=== PATIENT | male | born 1965 | race Caucasian/White ===

== ENCOUNTER 2016-09-11 01:53 | Emergency (ER) | payer OTHER ==
[2016-09-11] MEDS ORDERED: ADENOSINE 6 MG/2 ML VIAL IVP STA (02:18)
[2016-09-11] MEDS ORDERED: ADENOSINE 6 MG/2 ML VIAL IVP ONE (02:20)
[2016-09-11] MEDS ORDERED: POTASSIUM CHLORIDE 20 MEQ TABLET PO STA (03:53)
[2016-09-11] MEDS ORDERED: POTASSIUM CHLORIDE 20 MEQ TABLET PO ONE (04:02)
== END 2016-09-11 04:14 | disposition home or self-care (01) ==
DX: I47.1 Supraventricular tachycardia (principal)
CPT/HCPCS: 36415; 71020; 80053; 83690; 83735; 84100; 84443; 85025; 85610; 85730; 93005; 93010; 96374; 99291; A9270; J0153

== ENCOUNTER 2021-10-11 03:07 | Emergency (ER) | payer OTHER ==
[2021-10-11] MEDS ORDERED: PROPARACAINE 0.5% OPHTH DROPS 15 ML LEFTEYE STA (03:17)
[2021-10-11 03:36] VITALS: BP 190/95
[2021-10-11] MEDS ORDERED: oxyCODONE/ACET 5/325 Prepack 4 PO STA (03:38)
[2021-10-11] MEDS ORDERED: ERYTHROMYCIN OPHTH OINT 1 GM TUBE LEFTEYE STA (03:38)
--- NOTE | 2021-10-11 03:43 | ED Physician Documentation ---
PD HPI OPHTHO - Stated complaint Stated Complaint: OBJ IN L EYE - Chief complaint Chief Complaint: Heent - History obtained from History obtained from: Patient - Additional information Additional information: Patient is a 55-year-old male with a history of hypertension presenting for evaluation of left eye irritation. He was woodworking around 5 PM when he felt something fly under his safety glasses into his left eye. He tried to irrigate it with water. He continues to feel a irritation and has difficulty opening his eye.He does not routinely wear glasses or contacts but does have readers for astigmatism.He denies pain elsewhere. Review of Systems Constitutional: denies: Fever Eyes: reports: Photophobia, Irritation Nose: denies: Congestion Cardiac: denies: Chest pain / pressure Respiratory: denies: Dyspnea GI: denies: Abdominal Pain Musculoskeletal: denies: Neck pain Neurologic: denies: Headache, Head injury PD PAST MEDICAL HISTORY - Past Medical History Past Medical History: Yes Cardiovascular: Hypertension - Past Surgical History Past Surgical History: Yes HEENT: Tonsil/Adenoidectomy - Present Medications Home Medications: Ambulatory Orders Medication Instructions Recorded Confirmed Erythromycin Base [Erythromycin 1 appful LEFTEYE 5XD 7 Days #1 gm 10/11/21 Ophthalmic Ointment] Lisinopril [Zestril] 40 mg PO DAILY 10/11/21 10/11/21 Metoprolol Tartrate [Lopressor] 100 mg PO DAILY 10/11/21 10/11/21 Oxycodone HCl/Acetaminophen 1 each PO Q6H PRN #10 tablet 10/11/21 [Percocet 5-325 mg Tablet] amLODIPine [Norvasc] 5 mg PO DAILY 10/11/21 10/11/21 - Allergies Allergies/Adverse Reactions: Allergies Allergy/AdvReac Type Severity Reaction Status Date / Time No Known Drug Allergies Allergy Verified 10/11/21 03:16 - Social History Does the pt smoke?: No Smoking Status: Never smoker Does the pt drink ETOH?: No Does the pt have substance abuse?: No - Immunizations Immunizations are current?: No Immunizations: TDAP >10years/unknown - POLST Patient has POLST: No PD ED PE NORMAL - General General: Alert and oriented X 3, No acute distress, Well developed/nourished - HEENT HEENT: Atraumatic, PERRL, EOMI, Pharynx benign - Neck Neck: Supple, no meningeal sign - Derm Derm: Warm and dry - Neuro Neuro: Normal speech - Psych Psych: Normal mood PD ED PE EXPANDED - HEENT HEENT Visual: 1 - abrasion - Eyes Eyes: PERRL, EOMI, No eyelid FB (everted), Injected conj/sclera (Mild left conjunctival injection), Corneal abrasion (Left eye), Fluorescein uptake (Left eye), Anterior chambers clear. No: Corneal FB Results - Vitals Vitals: Vital Signs - 24 hr 10/11/21 10/11/21 03:12 03:32 Temperature 36.1 C L Heart Rate 59 L Respiratory 16 Rate Blood Pressure 190/95 H O2 Saturation 59 L 95 Oxygen O2 Source Room air PD MEDICAL DECISION MAKING - ED course Complexity details: d/w patient ED course: Patient is a 55-year-old male presenting for evaluation of left eye irritation. Visual acuity is intact. Eye was examined with no foreign body seen including with eyelid eversion. On fluorescein stain patient does have a small corneal abrasion to the 1 o'clock position of the left eye.No signs of globe rupture or increased IOP On exam. Patient started on erythromycin given medications for pain. Counseled on treatment plan as well as need for close follow-up with ophthalmology. Patient is aware of return precautions. In accordance with the [facility] clinical policy from June 2012, this patient has asymptomatic elevated blood pressure without evidence of acute target organ injury. There are also no signs of acute stroke, cardiac ischemia, pulmonary edema, encephalopathy or acute congestive heart failure. Therefore the patient will be referred to their primary care provider for follow-up of their asymptomatic hypertension. Departure - Departure Disposition: 01 Home, Self Care Clinical Impression: Corneal abrasion, left Qualifiers: Encounter type: initial encounter Qualified Code(s): S05.02XA - Injury of conjunctiva and corneal abrasion without foreign body, left eye, initial e ncounter Condition: Stable Instructions: ED Eye Injury Corneal Abrasion Prescriptions: Erythromycin Base [Erythromycin Ophthalmic Ointment] 1 appful LEFTEYE 5XD 7 Days #1 gm Oxycodone HCl/Acetaminophen [Percocet 5-325 mg Tablet] 1 each PO Q6H PRN #10 tablet PRN Reason: pain Comments: Elías - You were evaluated for an injury to your left eye. There is no signs of a foreign body in the eye or under the eyelid. However we did find an abrasion to the cornea. This can be very painful.I have prescribed antibiotic ointment as well as pain medications to help. It should get better in the next few days. Please take the medications as prescribed. The prescriptions were sent to the [facility] pharmacy in [place]. I would also recommend close follow-up with an supply chain technician. If you do not have 1, you can call Dr. Martinez at [facility] for an appointment.If you have any worsening symptoms such as abnormal vision, swelling, redness, abnormal drainage please return to the emergency department. Your blood pressure was noted to be elevated. Please also have close follow-up with your primary care doctor regarding this. I am prescribing a short course of narcotic pain medication for you. These are potentially dangerous and addictive medications that should be used carefully. These medications may constipate you. Take an aqbu-pas-ovziboh stool softener (docusate) twice daily with plenty of water while taking these medications. If you go 24 hours without a bowel movement, take fnxx-amu-mshybmc miralax, per package instructions. Do not drink or drive while taking these medications. If you received narcotic or sedating medications while in the emergency department, do not drive for 24 hours. Store this medication in a safe, secure place and out of reach of children. It is a violation of federal law to give or sell this medication to another person or to use in a manner other than prescribed. The ED will not refill narcotic prescriptions, including prescriptions lost or stolen. To dispose of unwanted medications: 1. [facility] at [address] in [place] has a medication drop box. They accept prescription medications (in pill form) Sunday through Sunday 9:00 a.m. to 5:00 p.m. 2. The [facility] accepts prescription medications (in pill form only) for disposal year round. Call for more information. 3. Contact the [facility] for the next [facility] sponsored prescription drug collection event. , [phone], or [phone]; Note that many narcotic pain relievers also contain Tylenol/acetaminophen. Please ensure that your total dose of acetaminophen from all sources does not exceed 3 g (3000 mg) per day. Discharge Date/Time: 10/11/21 03:49
== END 2021-10-11 03:49 | disposition home or self-care (01) ==
LOC: ED 03:07
DX: S05.02XA Injury of conjunctiva and corneal abrasion without foreign body, left eye, initial encounter (principal); X58.XXXA Exposure to other specified factors, initial encounter; Y93.H3 Activity, building and construction; Y92.89 Other specified places as the place of occurrence of the external cause; I10 Essential (primary) hypertension
CPT/HCPCS: 99282; J3490

== ENCOUNTER 2025-03-27 13:30 | Inpatient (IN) ==
--- OUTSIDE RECORDS SUMMARY | 2025-03-27 14:09 | EXTERNAL MEDICAL SUMMARY RPT | Continuity of Care Document ---
Author Organization [facility] Address [address] [place] [id number] Phone Problems date description facility 2025-01-22 16:21 Dysuria [facility] 2025-01-22 17:06 Dysuria [facility] 2025-01-23 00:06 Dysuria [facility] 2025-02-06 10:31 Dysuria [facility] 2025-03-03 15:27 Retention of urine, unspecified [facility] 2025-03-03 15:32 Hematuria, unspecified [facility] 2025-03-04 11:34 Other retention of urine [facility] 2025-03-04 15:47 Other retention of urine [facility] 2025-03-04 16:04 Other retention of urine [facility] 2025-03-04 16:06 Hematuria, unspecified [facility] 2025-03-05 00:04 Hematuria, unspecified [facility] 2025-03-18 00:05 Elevated prostate specific anti gen [PSA] [facility] 2025-03-18 14:58 Hematuria, unspecified [facility] 2025-03-18 15:00 Hematuria, unspecified [facility] 2025-03-18 15:00 Elevated prostate specific anti gen [PSA] [facility] 2025-03-18 15:12 Hematuria, unspecified [facility] 2025-03-18 15:17 Fever, unspecified [facility] 2025-03-18 15:44 Elevated prostate specific anti gen [PSA] [facility] 2025-03-18 15:56 Acute kidney failure, unspecifi ed [facility] 2025-03-19 00:04 Hematuria, unspecified [facility] 2025-03-19 00:04 Fever, unspecified [facility] 2025-03-23 08:36 [facility], [facility]ifi [facility] 2025-03-23 08:39 Elevated prostate specific anti gen [PSA[facility] 2025-03-23 08:41 Acute kidney failure, unspecifi ed [facility] 2025-03-23 08:44 Elevated prostate specific anti gen [PSA] [facility] 2025-03-23 14:52 Acute kidney failure, unspecifi ed [facility] 2025-03-23 14:55 Elevated prostate specific anti gen [PSA] [facility] 2025-03-23 15:21 Acute kidney failure, unspecifi ed [facility] 2025-03-23 15:21 Elevated prostate specific anti gen [PSA] [email or web address] [facility] 2025-03-23 16:44 [facility] 2025-03-24 00:02 Acute kidney failure, unspecifi ed [facility] 2025-03-24 07:56 [facility]atica, [facility] side [facility] Results/Labs test date facility value unit notes Result panel 1 CUL, URINE 2025-01-22 15:55 [facility] CXPCULTUR E IN PROGRESS. RESULTS TO FOLLOW. (missing) (missing) CUL, URINE 2025-01-22 15:55 [facility] NGNo growth (miss ing) (missing) Result panel 2 UROBILINOGEN,URINE 2025-02-25 07:58 [facility] 0.2 (NORMAL) e.u./dl (missing) SPECIFIC GRAVITY,URINE 2025-02-25 07:58 [facility] 1.020 (missing) (missing) RBC,URINE 2025-02-25 07:58 [facility] 11-25 /hpf (missing) WBC,URINE 2025-02-25 07:58 [facility] 6-10 /hpf (missing) PH,URINE 2025-02-25 07:58 [facility] 6.5 ph (missing) CLARITY,URINE 2025-02-25 07:58 [facility] HAZY (missing) (missing) URINE MICROSCOPIC INDICATED? 2025-02-25 07:58 [facility] INDICATED (missing) (missing) OCCULT BLOOD,URINE 2025-02-25 07:58 [facility] LARGE (missing) (missing) LEUKOCYTE ESTERASE, URINE 2025-02-25 07:58 [facility] NEGATIVE (missing) (missing) NITRITE,URINE 2025-02-25 07:58 [facility] NEGATIVE (missing) (missing) BILIRUBIN,URINE 2025-02-25 07:58 [facility] NEGATIVE (missing) Bilirubin can be influenced by color interference. Please correlate positive results with clinical presentation GLUCOSE, URINE (UA) 2025-02-25 07:58 [facility] NEGATIVE mg/dl (missing) KETONES,URINE (UA) 2025-02-25 07:58 [facility] NEGATIVE mg/dl (missing) SQUAMOUS EPITHELIAL CELL,UR 2025-02-25 07:58 [facility] NONE SEEN (missing) (missing) UR CULTURE IF IND 2025-02-25 07:58 [facility] NOT INDICATED (missing) (missing) BACTERIA,URINE 2025-02-25 07:58 [facility] Rare /hpf (missing) PROTEIN,URINE 2025-02-25 07:58 [facility] TRACE mg/dl (missing) COLOR,URINE 2025-02-25 07:58 [facility] YELLOW (missing) URINE CATHETERIZED Result panel 3 NUCLEATED RED BLOOD CELLS AUTO 2025-02-25 08:01 [facility] 0.0 /100wbc (missing) NRBC ABSOLUTE COUNT (AUTO) 2025-02-25 08:01 [facility] 0.00 x10 3/ul (missing) BASOPHILS # (AUTO) 2025-02-25 08:01 [facility] 0.1 10 3/ul (missing) EOSINOPHILS # (AUTO) 2025-02-25 08:01 [facility] 0.2 10 3/ul (missing) BILIRUBIN,TOTAL 2025-02-25 08:01 [facility] 0.5 mg/dl As of November 2022 testing method has changed, this may include reference ranges. MONOCYTES # (AUTO) 2025-02-25 08:01 [facility] 0.6 10 3/ul (missing) CREATININE 2025-02-25 08:01 [facility] 1.2 mg/dl As of November 2022 testing method has changed, this may include reference ranges. LYMPHOCYTES # (AUTO) 2025-02-25 08:01 [facility] 1.4 10 3/ul (missing) ALBUMIN/GLOBULIN RATIO 2025-02-25 08:01 [facility] 1.5 (missing) (missing) CHLORIDE 2025-02-25 08:01 [facility] 102 mmol/l As of November 2022 testing method has changed, this may include reference ranges. GLUCOSE 2025-02-25 08:01 [facility] 104 mg/dl As of November 2022 testing method has changed, this may include reference ranges. RED CELL DISTRIBUTION WIDTH 2025-02-25 08: [facility] 12.6 % (missing) ALKALINE PHOSPHATASE 2025-02-25 08: [facility] 125 iu/l As of November 2022 testing method has changed, this may include reference ranges. HGB - HEMOGLOBIN 2025-02-25 08: [facility] 13.5 g/dl (missing) SODIUM 2025-02-25 08:01 [facility] 136 mmol/l (missing) ALT ALANINE AMINOTRANSFERASE 2025-02-25 08:01 [facility] 16 iu/l As of November 2022 testing method has changed, this may include reference ranges. BUN - BLOOD UREA NITROGEN 2025-02-25 08:01 [facility] 17 mg/dl As of November 2022 testing method has changed, this may include reference ranges. AST ASPARTATE AMINOTRANSFERASE 2025-02-25 08:01 [facility] 23 iu/l As of November 2022 testing method has changed, this may include reference ranges. PLT - PLATELET COUNT 2025-02-25 08:01 [facility] 262 10 3/ul (missing) CARBON DIOXIDE - CO2 2025-02-25 08:01 [facility] 29 mmol/l As of November 2022 testing method has changed, this may include reference ranges. MEAN CORPUSCULAR HEMOGLOBIN 2025-02-25 08:01 [facility] 29.3 pg (missing) GLOBULIN 2025-02-25 08:01 [facility] 3.0 g/dl (missing) POTASSIUM 2025-02-25 08:01 [facility] 3.6 mmol/l As of November 2022 testing method has changed, this may include reference ranges. MEAN CORPUSCULAR HGB CONC 2025-02-25 08: [facility] 32.8 g/dl (missing) ALBUMIN 2025-02-25 08:01 [facility] 4.4 g/dl As of November 2022 testing method has changed, this may include reference ranges. NEUTROPHILS # (AUTO) 2025-02-25 08: [facility] 4.6 10 3/ul (missing) RED BLOOD COUNT 2025-02-25 08:01 [facility] 4.61 10 6/ul (missing) HCT - HEMATOCRIT 2025-02-25 08: [facility] 41.1 % (missing) ANION GAP 2025-02-25 08:01 [facility] 5.0 (missing) (missing) WHITE BLOOD COUNT 2025-02-25 08:01 [facility] 6.9 x10 3/ul (missing) GFR - MDRD 2025-02-25 08: [facility] 62 (missing) The IDMS-traceable MDRD Study Equation has been validated extensively in and populations between the ages of 18 and 70 with impaired kidney function (eGFR < 60 mL/min/1.73m2) and has shown good performance for patients with all common causes of kidney disease. Although this equation has not been validated for patients older than 70, an MDRD-derived eGFR may still be a useful tool for providers caring for patients older than 70. References: http://www.nkdep. nih.gov/lab-evalu ation/gfr/creatin ine-stand ardization, last updated July 2011. TOTAL PROTEIN 2025-02-25 08:01 [facility] 7.4 g/dl As of November 2022 testing method has changed, this may include reference ranges. MEAN CORPUSCULAR VOLUME 2025-02-25 08:01 [facility] 89.2 fl (missing) MEAN PLATELET VOLUME 2025-02-25 08:01 [facility] 9.1 fl (missing) CALCIUM 2025-02-25 08:01 [facility] 9.6 mg/dl As of November 2022 testing method has changed, this may include reference ranges. Result panel 4 AMPICILLIN 2025-03-04 15:45 [facility] >=32 (missing) This organism is NEGATIVE for Extended Spectrum Beta Lactamase CEFEPIME 2025-03-04 15:45 [facility] <=0.12 (missing) (missing) ERTAPENEM 2025-03-04 15:45 [facility] <=0.12 (missing) (missing) LEVOFLOXACIN 2025-03-04 15:45 [facility] <=0.12 (missing) (missing) CEFTRIAXONE 2025-03-04 15:45 [facility] <=0.25 (missing) (missing) CIPROFLOXACIN 2025-03-04 15:45 [facility] <=0.25 (missing) (missing) IMIPENEM 2025-03-04 15:45 [facility] <=0.25 (missing) (missing) GENTAMICIN 2025-03-04 15:45 [facility] <=1 (missing) (missing) TOBRAMYCIN 2025-03-04 15:45 [facility] <=1 (missing) (missing) NITROFURANTOIN 2025-03-04 15:45 [facility] <=16 (missing) (missing) TRIMETHOPRIM/SULFA METHOXAZOLE 2025-03-04 15:45 [facility] <=20 (missing) (missing) CEFAZOLIN 2025-03-04 15:45 [facility] <=4 (missing) (missing) CUL, URINE 2025-03-04 15:45 [facility] 100>100,000 CFU/mL (missing) (missing) AMPICILLIN/SULBACT AM 2025-03-04 15:45 [facility] 16 (missing) (missing) O:ESCCOL 2025-03-04 15:45 [facility] ESCCOLESCHERICHIA COLIESCHERICHIA COLI (missing) (missing) CUL, URINE 2025-03-04 15:45 [facility] IDMICID/KRISTIAN COM* (missing) (missing) CUL, URINE 2025-03-04 15:45 [facility] SENSISENSITIVITIES TO FOLLOW (missing) (missing) CUL, URINE 2025-03-04 15:45 [facility] UCC.6COLONY COUNT (missing) (missing) Result panel 5 PSA TOTAL 2025-03-17 11:29 [facility] 17.959 ng/ml [facility] uses a WHO cutoff value of 2.0 ng/mL. Result panel 6 CUL, URINE 2025-03-18 14:55 [facility] 100>100,000 CFU/mL (missing) (missing) CUL, URINE 2025-03-18 14:55 [facility] CXPCULTURE IN PROGRESS. RESULTS TO FOLLOW. (missing) (missing) CUL, URINE 2025-03-18 14:55 [facility] IDMICID/KRISTIAN COM* (missing) (missing) CUL, URINE 2025-03-18 14:55 [facility] Pending (missing) (missing) CUL, URINE 2025-03-18 14:55 [facility] SENSNISENSITIVITIES NOT INDICATED FOR THIS ISOLATE (missing) (missing) O:STRVID 2025-03-18 14:55 [facility] STRVIDSTREPTOCOCCUS VIRIDANS GROUPSTREPTOCOCCUS VIRIDANS GROUP (missing) (missing) CUL, URINE 2025-03-18 14:55 [facility] UCC.6COLONY COUNT (missing) (missing) Result panel 7 NUCLEATED RED BLOOD CELLS AUTO 2025-03-18 15:24 [facility] [employer] 0.0 /100wbc (missing) BASOPHILS # (AUTO) 2025-03-18 15:24 [facility] 0.0 10 3/ul (missing) NRBC ABSOLUTE COUNT (AUTO) 2025-03-18 15:24 [facility] 0.00 x10 3/ul (missing) EOSINOPHILS # (AUTO) 2025-03-18 15:24 [facility] 0.2 10 3/ul (missing) BILIRUBIN,TOTAL 2025-03-18 15:24 [facility] [employer] 0.4 mg/dl As of November 2022 testing method has changed, this may include reference ranges. ALBUMIN/GLOBULIN RATIO 2025-03-18 15:24 [facility] 1.0 (missing) (missing) MONOCYTES # (AUTO) 2025-03-18 15:24 [facility] [employer] 1.0 10 3/ul (missing) LYMPHOCYTES # (AUTO) 2025-03-18 15:24 [facility] 1.5 10 3/ul (missing) CREATININE 2025-03-18 15:24 [facility] 1.8 mg/dl As of November 2022 testing method has changed, this may include reference ranges. WHITE BLOOD COUNT 2025-03-18 15:24 [facility] 10.0 x10 3/ul (missing) CHLORIDE 2025-03-18 15:24 [facility] 102 mmol/l As of November 2022 testing method has changed, this may include reference ranges. GLUCOSE 2025-03-18 15:24 [facility] 109 mg/dl As of November 2022 testing method has changed, this may include reference ranges. RED CELL DISTRIBUTION WIDTH 2025-03-18 15:24 [facility] 12.0 % (missing) HGB - HEMOGLOBIN 2025-03-18 15:24 [facility] 13.2 g/dl (missing) SODIUM 2025-03-18 15:24 [facility] 136 mmol/l (missing) ALT ALANINE AMINOTRANSFERASE 2025-03-18 15:24 [facility] 20 iu/l As of November 2022 testing method has changed, this may include reference ranges. AST ASPARTATE AMINOTRANSFERASE 2025-03-18 15:24 [facility] 22 iu/l As of November 2022 testing method has changed, this may include reference ranges. ALKALINE PHOSPHATASE 2025-03-18 15:24 [facility] 261 iu/l As of November 2022 testing method has changed, this may include reference ranges. CARBON DIOXIDE - CO2 2025-03-18 15:24 [facility] 27 mmol/l As of November 2022 testing method has changed, this may include reference ranges. BUN - BLOOD UREA NITROGEN 2025-03-18 15:24 [facility] 28 mg/dl As of November 2022 testing method has changed, this may include reference ranges. MEAN CORPUSCULAR HEMOGLOBIN 2025-03-18 15:24 [facility] 28.8 pg (missing) GLOBULIN 2025-03-18 15:24 [facility] 3.9 g/dl (missing) MEAN CORPUSCULAR HGB CONC 2025-03-18 15:24 [facility] 32.2 g/dl (missing) GFR - MDRD 2025-03-18 15:24 [facility] 39 (missing) The IDMS-traceable MDRD Study Equation has been validated extensively in and populations between the ages of 18 and 70 with impaired kidney function (eGFR < 60 mL/min/1.73m2) and has shown good performance for patients with all common causes of kidney disease. Although this equation has not been validated for patients older than 70, an MDRD-derived eGFR may still be a useful tool for providers caring for patients older than 70. References: http://www.nkdep .nih.gov/lab-irene luation/gfr/crea tinine-stand ardization, last updated July 2011. ALBUMIN 2025-03-18 15:24 [facility] 4.0 g/dl As of November 2022 testing method has changed, this may include reference ranges. POTASSIUM 2025-03-18 15:24 [facility] 4.1 mmol/l As of November 2022 testing method has changed, this may include reference ranges. RED BLOOD COUNT 2025-03-18 15:24 [facility] 4.59 10 6/ul (missing) HCT - HEMATOCRIT 2025-03-18 15:24 [facility] 41.0 % (missing) PLT - PLATELET COUNT 2025-03-18 15:24 [facility] 510 10 3/ul (missing) ANION GAP 2025-03-18 15:24 [facility] 7.0 (missing) (missing) NEUTROPHILS # (AUTO) 2025-03-18 15:24 [facility] 7.3 10 3/ul (missing) TOTAL PROTEIN 2025-03-18 15:24 [facility] 7.9 g/dl As of November 2022 testing method has changed, this may include reference ranges. MEAN CORPUSCULAR VOLUME 2025-03-18 15:24 [facility] 89.3 fl (missing) MEAN PLATELET VOLUME 2025-03-18 15:24 [facility] 9.2 fl (missing) CALCIUM 2025-03-18 15:24 [facility] 9.4 mg/dl As of November 2022 testing method has changed, this may include reference ranges. CULTURE, BLOOD #1 2025-03-18 15:24 [facility] NG1DNO GROWTH AFTER 1 DAY (missing) (missing) CULTURE, BLOOD #1 2025-03-18 15:24 [facility] NG2DNO GROWTH AFTER 2 DAYS (missing) (missing) CULTURE, BLOOD #1 2025-03-18 15:24 [facility] NG5DNO GROWTH AFTER 5 DAYS (missing) (missing) Result panel 8 CULTURE, BLOOD #2 2025-03-18 15:28 [facility] NG1D NO GROWTH AFTER 1 DAY (missing) (missing) CULTURE, BLOOD #2 2025-03-18 15:28 [facility] NG2D NO GROWTH AFTER 2 DAYS (missing) (missing) CULTURE, BLOOD #2 2025-03-18 15:28 [facility] NG5D NO GROWTH AFTER 5 DAYS (missing) (missing) Social History date description facility
[2025-03-27 15:01] LABS: HCT - HEMATOCRIT 42.0 % (42.0-52.0); HGB - HEMOGLOBIN 13.3 g/dL (14.0-18.0); MEAN PLATELET VOLUME 9.0 fL (7.4-11.4); NRBC ABSOLUTE COUNT (AUTO) 0.00 x10^3/uL; NUCLEATED RED BLOOD CELLS AUTO 0.0 /100WBC; PLT - PLATELET COUNT 417 10^3/uL (130-450); RED CELL DISTRIBUTION WIDTH 12.1 % (12.0-15.0)
[2025-03-27 15:07] LABS: OCCULT BLOOD,URINE LARGE (NEGATIVE)
[2025-03-27 15:08] LABS: GLUCOSE, URINE (UA) NEGATIVE (NEGATIVE); KETONES,URINE (UA) TRACE mg/dL (NEGATIVE); SQUAMOUS EPITHELIAL CELL,UR RARE Squamous (<= Few); WBC CLUMPS,URINE PRESENT; YEAST,URINE PRESENT
[2025-03-27 15:33] LABS: ALT ALANINE AMINOTRANSFERASE 22.0 IU/L (10-60); AST ASPARTATE AMINOTRANSFERASE 33.0 IU/L (10-42); BUN - BLOOD UREA NITROGEN 29.0 mg/dL (6-20); CARBON DIOXIDE - CO2 32.0 mmol/L (21-32); CREATININE 2.2 mg/dL (0.6-1.3); GFR - MDRD 31.0 (>89)
--- NOTE | 2025-03-27 15:46 | ED Physician Documentation ---
PD HPI ABD PAIN Stated complaint Stated Complaint: BACK PX, DIZZY Chief complaint Chief Complaint: Abd Pain History obtained from History obtained from: Patient History of Present Illness Timing - onset: How many weeks ago (Several weeks of urinary system problems with initial hesitancy of urination with then urinary retention due to UTI and persistent infection with severe back pain. Worse the past few days.) Timing - details: Gradual onset, Still present and Constant Quality: Aching and Pain Location: Suprapubic and Other (bilateral kidney areas.) Radiation: Left flank and Right flank Worsened by: Moving and Breathing; No Eating or Palpation Associated symptoms: Nausea, Dysuria and Loss of appetite; No Fever, Vomiting, Diarrhea or Chest pain Recently seen: Clinic and Emergency Dept Meds/Allgy Home Medications Ambulatory Orders Medication Instructions Recorded Confirmed amlodipine 5 mg tablet 5 mg PO DAILY 10/11/2103/18 lisinopril 40 mg tablet (Zestril) 40 mg PO DAILY 10/1103/18/25 metoprolol tartrate 100 mg tablet 100 mg PO DAILY 09/2503/18/25 (Lopressor) trazodone 50 mg tablet mg PO 12/18/24 03/18/25 finasteride 5 mg tablet 5 mg PO QDAY #90 tabs 03/18/25 tamsulosin 0.4 mg capsule 0.4 mg PO HS #90 caps 03/04/25 tizanidine 2 mg capsule 2 mg PO TID PRN 03/04/25 meloxicam 15 mg tablet 15 mg PO DAILY #14 tabs 02/26 12/19 methylprednisolone 4 mg tablets in See Rx Instructions PO .COMPLEX 03/23/25 a dose pack (Medrol (Charan)) #21 ea oxycodone-acetaminophen 5 mg-325 1 - 2 tab PO Q8H PRN pain #14 tabs 03/23/25 mg tablet Allergies Allergies Allergy/AdvReac Type Severity Reaction Status Date / Time ciprofloxacin AdvReac Mild kidney pain Verified 03/27/25 14:05 PFSH Active Problems All Active Problems (Updated 03/27/25 @ 16:49 by Iván Sheppard MD) Severe back pain (Acute) RICHARD (acute kidney injury) (Acute) Failure of outpatient treatment (Acute) Acute pyelonephritis (Acute) Sciatica of left side (Acute) RICHARD (acute kidney injury) (Acute) Fever (Acute) Elevated PSA (Acute) Hematuria (Acute) Acute urinary retention (Acute) Hypertension (Acute) Dysuria (Acute) SVT (supraventricular tachycardia) (Acute) Medical History Medical History (Updated 03/27/25 @ 16:49 by Iván Sheppard MD) Flank pain Social History Social History (Updated 01/22/25 @ 15:58 by Jolynn Hugo) Smoking Status: Never smoker Do you dip or chew tobacco?: No Do you vape?: No Level: Independent Home Mobility Equipment: Crutches Do you feel safe in your home environment?: Yes History of physical, verbal, emotional, or financial abuse?: No Substance Use: denies use POLST Patient has POLST: No Exam Exam Vital Signs: Vital Signs x48h Temp Pulse Resp BP Pulse Ox 03/27/25 16:22 84 172/89 H 95 03/27/25 13:59 36.9 C 79 22 149/76 H 99 Constitutional normal general appearance, distress noted (severe) (due to bilateral flank pain.) and average body habitus Neck/C-Spine supple and no meningeal signs Lymph no lymphadenopathy noted Respiratory normal respiratory effort and clear to auscultation bilaterally Cardiovascular heart rate abnormal (tachycardic), regular rhythm noted and no murmur Gastrointestinal abdomen soft to palpation, tender to palpation (moderate) and (suprapubic) and nondistended Genitourinary CVA tenderness noted (Significant bilateral CVA tenderness to percussion.) Back/Pelvis no thoracic spine tenderness and no lumbar spine tenderness Extremities no tenderness and full ROM Neurology no focal motor deficit noted and no sensory deficits noted Psychiatry mental status grossly normal, oriented x3, cooperative and affect normal Skin skin color normal Results Vitals Vitals: Vital Signs - 24 hr 03/27/25 13:59 03/27/25 16:17 03/27/25 16:17 Temperature 36.9 C Temperature Source Temporal Artery Scan Pulse Rate 79 Respiratory Rate 22 Blood Pressure 149/76 H O2 Saturation 99 O2 Source Room air Pain Intensity 10 9 9 03/27/25 16:22 Temperature Temperature Source Pulse Rate 84 Respiratory Rate Blood Pressure 172/89 H O2 Saturation 95 O2 Source Room air Pain Intensity Oxygen O2 Source Room air Labs Labs: Laboratory Tests 03/27/25 03/27/2503/27/25 14:23 14:52 16:23 WBC 15.4 H RBC 4.73 Hgb 13.3 L Hct 42.0 MCV 88.8 MCH 28.1 MCHC 31.7 L RDW 12.1 Plt Count 417 MPV 9.0 Neut # (Auto) 12.5 H Lymph # (Auto) 1.3 L Todd # (Auto) 1.3 H Eos # (Auto) 0.0 Baso # (Auto) 0.1 Absolute Nucleated RBC 0.00 Nucleated RBC % 0.0 Sodium 132 L Potassium 5.2 H Chloride 96 L Carbon Dioxide 32 Anion Gap 4.0 L BUN 29 H Creatinine 2.2 H Estimated GFR (MDRD) 31 L Glucose 116 H Lactic Acid 0.6 Calcium 10.0 Total Bilirubin 1.0 AST 33 ALT 22 Alkaline Phosphatase 502 H Total Protein 8.2 Albumin 4.1 Globulin 4.1 Albumin/Globulin Ratio 1.0 Lipase 18 Urine Color RED/BLOODY Urine Clarity BLOODY Urine pH 6.0 Ur Specific [place] 1.020 Urine Protein 100 H Urine Glucose (UA) NEGATIVE Urine Ketones TRACE Urine Occult Blood LARGE Urine Nitrite NEGATIVE Urine Bilirubin NEGATIVE Urine Urobilinogen 0.2 (NORMAL) Ur Leukocyte Esterase SMALL H Urine RBC TNTC H Urine WBC 11-25 H Urine WBC Clumps PRESENT Ur Squamous Epith Cells RARE Squamous Urine Bacteria Moderate H Urine Yeast PRESENT Ur Microscopic Review INDICATED Urine Culture Comments INDICATED PD Medical Decision Making ED course ED course: The patient presents today with severe back pain bilaterally in the kidney areas associated with some hesitancy with urination and feeling general malaise with nausea. The initial time course of symptoms started earlier this month. He had had problems with weak urination and hesitancy for several weeks prior and then came into the ER on 03/04/2025 with urinary retention had a Fung catheter placed and put on ciprofloxacin for possible UTI. He had the catheter in place for for 5 days and was seen in follow-up by urology. He had been treated with ciprofloxacin and his urine culture grew out out E. coli sensitive to the quinolones. In the office he had a postvoid residual done after removal of the catheter and subsequent follow-up and showed good emptying. He subsequently had back pain with the still some hesitancy. Seen in urology office again with postvoid residual of the low number, I believe it was 18. He had outpatient CT scan on the which showed no signs of stones or masses but enlarged prostate and some hydroureter and hydronephrosis on both sides. Seen in the ER on the with back pain. He had a small amount of urine in the bladder so no catheter placed. However he did show signs of bladder infection and was prescribed Bactrim. I believe he had been prescribed Macrobid from the office visits prior. I am seeing the urine culture from that ER visit showing a streptococcal species. He states he is continue with the back pain over the past week and has gotten worse with nausea and general malaise the last day or 2. His urine today is showing still per signs of persistent signs of infection. This may be reasonable given the Bactrim would not target strep species per se. I did not necessarily see a culture follow-up per se. Given recent imaging of CT scan without any stones, I did not see reason for reimaging today. Residual in the bladder was approximately 140. His white count is elevated. His creatinine is higher still at 2.2 with most recent 1.8 and prior baseline more normal. It does seem that he is having some RICHARD related to infection and perhaps the back pressuring from [employer] in the the hydro. Given persistent infection with acute kidney injury on lab testing and elevated white count and significant back pain, I feel hospitalization may be appropriate for hydration and IV antibiotics. I talked with the hospitalist who [facility]. Discharge Plan Discharge Patient Disposition: [facility] DC/Xfer Condition: Stable Clinical Impression: Acute pyelonephritis, Failure of outpatient treatment, RICHARD (acute kidney injury), Severe back pain Interventions: ED Admission Assessment Last Done: 03/27/25 17:51 Vitals documented within 30 minutes of discharge?: Yes
[2025-03-27] MEDS: KETOROLAC 15 MG/ML VIAL IVP STA (16:17)
[2025-03-27] MEDS: HYDROmorphone 1 MG/ML CARPUJECT IVP STA (16:17)
[2025-03-27] MEDS ORDERED: ACETAMINOPHEN 325 MG TABLET PO PRN (17:56)
[2025-03-27] MEDS ORDERED: SODIUM CHLORIDE FLUSH 0.9% 10 ML SYRINGE IVP PRN (17:56)
[2025-03-27] MEDS ORDERED: ONDANSETRON 4 MG/2 ML VIAL IVP PRN (17:56)
[2025-03-27] MEDS: SODIUM CHLORIDE FLUSH 0.9% 10 ML SYRINGE IVP SCH (18:51)
[2025-03-27] MEDS ORDERED: LIDOCAINE 2% URO-JET 5 ML SYRINGE UR PRN ×2 (19:22→19:42)
--- NOTE | 2025-03-27 19:32 | HISTORY & PHYSICAL EXAMINATION ---
Chief Complaint Chief Complaint Chief Complaint: flank pain History of Present Illness Admitted From Admitted From:: home History Obtained From Records Reviewed: urology notes History obtained from: patient and . History of Present Illness HPI Comment/Other: 59 yo male w PMHx HTN, and SVT and more recently recurrent UTI presents to the ED with complaints of feeling dizzy and bilateral flank pain, right>left. Has been seen by urology. Recent PSA of 17.9, Dr. Marin notes that his PSA has been increasing from 0.2 in May 2019-6.9 in January 2025 and now 17.9. Earlier this month he had an episode of acute urinary retention and had a Fung placed. This was very traumatic for him and he would prefer not to have a Fung. He started tamsulosin and finasteride but was unable to tolerate these medications due to side effects. He was seen in urology office after having Fung catheter for a week, was passing urine normally with some urgency with a postvoid residual of 83 cc. MRI of the prostate is scheduled for March 31. He is also had a CT of the abdomen pelvis done 4 days ago which shows mild bilateral hydro ureter nephrosis without distal obstructing stone. This is thought to be sequela of chronic bladder outlet obstruction given the enlarged prostate gland and thickening of the urinary bladder with suggestion of mild urinary bladder wall trabeculation. There is subtle perivesicular stranding which could represent cystitis. Urine cultures on 03/04/2025 grew E. coli and on 03/18/2025 grew strep viridans he had a set of negative blood cultures from 03/18/2025. As stated above he has been feeling poorly at home. Subjective fevers, weak and dizzy.He had a course of ciprofloxacin earlier in the month and then was treated subsequently with a course of Bactrim. His urinalysis today is indicative of urinary tract infection. Culture is obviously pending at this time. Blood cultures were drawn post initiation of antibiotic therapy today. CODE STATUS: Full code. Surrogate decision maker should he need one is his , Flori Smith. Meds/Allgy Home Medications Ambulatory Orders Medication Instructions Recorded Confirmed amlodipine 5 mg tablet 5 mg PO DAILY 10/11/2103/18 lisinopril 40 mg tablet (Zestril) 40 mg PO DAILY 10/1103/18/25 metoprolol tartrate 100 mg tablet 100 mg PO DAILY 09/2503/18/25 (Lopressor) trazodone 50 mg tablet mg PO 12/18/24 03/18/25 finasteride 5 mg tablet 5 mg PO QDAY #90 tabs 03/18/25 tamsulosin 0.4 mg capsule 0.4 mg PO HS #90 caps 03/04/25 tizanidine 2 mg capsule 2 mg PO TID PRN 03/04/25 meloxicam 15 mg tablet 15 mg PO DAILY #14 tabs 02/26 12/19 methylprednisolone 4 mg tablets in See Rx Instructions PO .COMPLEX 03/23/25 a dose pack (Medrol (Charan)) #21 ea oxycodone-acetaminophen 5 mg-325 1 - 2 tab PO Q8H PRN pain #14 tabs 03/23/25 mg tablet Allergies Allergies Allergy/AdvReac Type Severity Reaction Status Date / Time ciprofloxacin AdvReac Mild kidney pain Verified 03/27/25 14:05 PFSH Active Problems All Active Problems (Updated 03/27/25 @ 19:44 by JAYESH Tineo) Bladder outlet obstruction (Acute) Sepsis (Acute) Severe back pain (Acute) RICHARD (acute kidney injury) (Acute) Failure of outpatient treatment (Acute) Acute pyelonephritis (Acute) Sciatica of left side (Acute) RICHARD (acute kidney injury) (Acute) Fever (Acute) Elevated PSA (Acute) Hematuria (Acute) Acute urinary retention (Acute) Hypertension (Acute) Dysuria (Acute) SVT (supraventricular tachycardia) (Acute) Medical History Medical History (Updated 03/27/25 @ 19:44 by JAYESH Tineo) Flank pain Social History Social History (Updated 03/27/25 @ 19:36 by JAYESH Tineo) Smoking Status: Never smoker Do you dip or chew tobacco?: No Do you vape?: No Level: Independent Home Mobility Equipment: Crutches Do you feel safe in your home environment?: Yes History of physical, verbal, emotional, or financial abuse?: No Substance Use: denies use POLST Patient has POLST: No Review of Systems Status of ROS: 10 or more systems reviewed and unremarkable except as noted in history and below Prior Level of Functionality: Independent. Has not been to work for several weeks due to sickness. Exam Exam Vital Signs: Vital Signs x48h Temp Pulse Pulse Resp BP Pulse Ox 03/27/25 18:01 36.5 C 77 16 96 03/27/25 17:47 77 156/86 H 94 03/27/25 16:22 84 172/89 H 95 03/27/25 13:59 36.9 C 79 22 149/76 H 99 Sepsis Event Note (H) Evaluation Current Stage of Sepsis: Sepsis Possible source of Sepsis: positive Genitourinary Sepsis Criteria Sepsis Criteria: WBC count greater than 12,000 or less than 4000 Conclusion/Plan Problem List (1) Sepsis: Plan: This patient with bladder outlet obstruction is refusing a Fung. He appears to have some mild sepsis with elevated white blood cell count of 15.4. His lactate is 0.6. He has some mild hyponatremia at 132. The leukocytosis and the hyponatremia appear acute. He has been feeling weak and dizzy at home. He has had several urinary tract infections over the last month. His urine analysis shows infection today. Urine cultures are pending at this time. Discussed with Dr. Sheppard in the emergency department and decision was made to admit this patient to observation status. He received Rocephin 1 g IV in the emergency department. I have drawn blood cultures after initiation of antibiotic therapy unfortunately. I have ordered Rocephin 2 g IV daily to start tomorrow morning. I will follow-up on cultures. If the patient spikes a fever will redraw blood cultures. I will recheck CBC in the AM. (2) RICHARD (acute kidney injury): Plan: Acute kidney injury probably due to a combination of obstructive uropathy and sepsis. Baseline creatinine is normal, 1.2 on the first of this month, and 2.2 this evening. I will hydrate the patient overnight with IV fluids. He can also eat and drink at will. I will recheck BMP in the AM. This patient needs extra fluid support in the face of the sepsis and acute kidney injury. He did not have sepsis IV fluid bolus in the emergency department. I will start him on 100 mL of NS overnight in addition to his oral p.o. fluid intake. (3) Bladder outlet obstruction: Plan: This patient had a CT scan on 03/23 showing mild bilateral hydroureter nephrosis without stone. This is likely sequelae of bladder outlet obstruction. It is obvious that he has a large prostate. MRI of the prostate is scheduled for March 31. There is evidence of climbing PSA over the course of this year. He is being worked up for prostate cancer by Dr. Marin of urology. He has attempted to take tamsulosin and finasteride but could not due to GI side effects. He has therefore stopped these medications. I have recommended Fung catheter placement to this patient. He vehemently does not want to have a Fung placed. He had 1 earlier this month and found it to be very uncomfortable situation. After discussion with the patient we decided that should he be able to keep the contents of his bladder but less than [address] a Fung. Discussed with the RN and she will continue to BladderScan him. Since arrival here on the floor he had a bladder scan for 237 mL and was able to urinate after that. He did not completely empty his bladder. (4) Hypertension: Plan: His home medications are amlodipine 5 mg daily, metoprolol to tartrate 100 mg daily and lisinopril 40 mg daily. Full medication reconciliation has not been done by pharmacy. I will not start his home medications until reconciliation is complete. This evening his blood pressures appear mildly hypertensive we will continue to observe overnight. Qualifiers: Hypertension type: unspecified Qualified Code(s): I10 - Essential (primary) hypertension Plan I have spent 85 minutes in the care of this patient today. This includes time [id number], review and ordering of diagnostic imaging and laboratory studies and consultation with other providers. Monitoring the patient's signs symptoms, evaluation of medication effectiveness and patient's response to treatment. Lab Results Lab results reviewed: Yes 03/27/25 14:52 03/27/25 14:52 Core Measures DVT/VTE - Prophylaxis VTE/DVT Device ordered at admit?: Yes VTE/DVT Prophylaxis med ordered at admit?: Yes
[2025-03-27] MEDS: cefTRIAXone 1 GM VIAL IVP STA (19:47)
[2025-03-27] MEDS: FLUCONAZOLE 200 MG/100 ML 100 ML IV ONE (19:47)
[2025-03-27] MEDS: oxyCODONE 5 MG TABLET PO PRN (20:04)
[2025-03-27] MEDS: SODIUM CHLORIDE 0.9% 1,000 ML IV SCH (20:05)
[2025-03-27 20:21] LABS: AMORPHOUS SEDIMENT,UR Few /LPF; GLUCOSE, URINE (UA) NEGATIVE (NEGATIVE); KETONES,URINE (UA) 5 mg/dL (NEGATIVE); OCCULT BLOOD,URINE LARGE (NEGATIVE); SQUAMOUS EPITHELIAL CELL,UR RARE Squamous (<= Few); WBC CLUMPS,URINE PRESENT
[2025-03-27] MEDS: PHENAZOPYRIDINE 100 MG TABLET PO SCH (22:20)
[2025-03-28] MEDS: oxyCODONE 5 MG TABLET PO PRN ×2 (04:18→12:32)
[2025-03-28] MEDS: CYCLOBENZAPRINE 10 MG TABLET PO PRN (05:51)
[2025-03-28 06:14] LABS: HCT - HEMATOCRIT 36.2 % (42.0-52.0); HGB - HEMOGLOBIN 11.2 g/dL (14.0-18.0); MEAN PLATELET VOLUME 9.1 fL (7.4-11.4); NRBC ABSOLUTE COUNT (AUTO) 0.00 x10^3/uL; NUCLEATED RED BLOOD CELLS AUTO 0.0 /100WBC; PLT - PLATELET COUNT 285 10^3/uL (130-450); RED CELL DISTRIBUTION WIDTH 12.4 % (12.0-15.0)
[2025-03-28 06:25] LABS: BUN - BLOOD UREA NITROGEN 30.0 mg/dL (6-20); CARBON DIOXIDE - CO2 28.0 mmol/L (21-32); CREATININE 1.8 mg/dL (0.6-1.3); GFR - MDRD 39.0 (>89)
--- NOTE | 2025-03-28 07:23 | PROVIDER PROGRESS NOTE ---
<Statement entered by Augustin Anderson, DO - 03/28/25 14:49> I was present with the medical student on the hospitalist service. I personally verified the history of present illness and performed the physical examination and medical decision making. I have verified the medical students documentation for this encounter and agree with the plan of care below. In addition this a 59-year-old gentleman who has a history of bladder outlet obstruction, likely BPH versus prostate cancer. He does have an elevated PSA in the community, though the elevation is quite abrupt for malignancy (100 X elevation over several months), no other B symptoms. He has had urinary infections symptoms going on for the last month or so. He has had multiple UAs since November, and on March 04 had an E. coli bacteriuria, March 18 had strep viridans bacteriuria. He has been on outpatient antibiotics, but had worsening bilateral flank pain prompting him to seek care. This morning, his labs have overall improved. He has improvement in his leukocytosis, effectively resolved. He has no other systemic signs of illness, no fevers no chills. He is not septic by vital signs. RICHARD improving as well with creatinine trending from 2.2 down to 1.8. Baseline normal. Unfortunately his pain is still proving difficult to control. He was in crisis this morning, received some IV narcotics and has been started on scheduled oral narcotics and scheduled APAP. He is still having some pain as of this afternoon, but much better controlled. If his pain is still worsening or uncontrolled in the morning, will likely rescan his abdomen, otherwise he is on appropriate treatments and we are pending cultures. Rest of plan per note below. Subjective Prog Note Date Prog Note Date: 03/28/25 Prog Note Time: 07:21 Subjective Pt reports feeling: Improved Subjective: Patient's vital signs remained clinically stable. He was hypertensive at 178/88, and tachypneic 26. Improved with pain medications. Remains afebrile without tachycardia. Tmax 36.9 Celsius. Saturations high 90s on room air. His WBC is improved from 15.4-10.9. Creatinine improved from 2.2-1.8. Receiving gentle fluids. Patient is receiving copious amounts of narcotic. Received 5 mg oxycodone x 2 overnight and 10 mg this morning. He has also been started on Azo. He got a dose of Flexeril this morning. He had a dose of Toradol yesterday on arrival in the ED. Today he is still having intermittent R sided back pain, spasmic. But improved from yesterday and without nausea, fever or chills. Given 2 mg morphine. Passing urine on his own. Still with weak urinary stream but without dysuria or suprapubic pain. PVR is 226. Given 2gm ceftriaxone this morning. Awaiting urine and blood cultures. Current Medications Current Medications Current Medications: Current Medications Generic Name Dose Route Start Last Admin Trade Name Freq PRN Reason Stop Dose Admin Acetaminophen 650 mg 03/27/25 17:56 Acetaminophen 325 Mg Tablet PO Q4HR PRN Pain 1 to 4, or Fever Ceftriaxone Sodium 2 gm 03/28/25 09:00 Ceftriaxone 2 Gm Vial IVP DAILY TASHA Cyclobenzaprine HCl 5 mg 03/28/25 04:50 03/28/25 05:51 Cyclobenzaprine 10 Mg Tablet PO 5 mg TID PRN Administration Spasms Enoxaparin Sodium 40 mg 03/28/25 09:00 Enoxaparin 40 Mg/0.4 Ml Syringe SUBQ DAILY TASHA Hydromorphone HCl 0.5 mg 03/28/25 05:00 Hydromorphone 0.5 Mg/0.5 Ml Syringe IVP 03/28/25 08:00 ONCE TASHA Sodium Chloride 1,000 mls @ 100 mls/hr 03/27/25 20:00 03/28/25 05:53 Normal Saline 0.9% IV 100 mls/hr .Q10H TASHA Administration Insulin Human Lispro 3 - 11 unit 03/28/25 08:00 Insulin Lispro 300 Unit/3 Ml Pen SUBQ 0800,1200,1700,2100 TASHA Protocol Lidocaine HCl 2.5 ml 03/27/25 19:42 Lidocaine 2% Uro-Jet 5 Ml Syringe UR 03/28/25 19:41 ONCE PRN beltran insertion Ondansetron HCl 4 mg 03/27/25 17:56 Ondansetron 4 Mg/2 Ml Vial IVP Q6HR PRN Nausea / Vomiting Oxycodone HCl 5 mg 03/27/25 17:56 03/28/25 00:30 Oxycodone 5 Mg Tablet PO 5 mg Q4HR PRN Administration Pain 5 to 7 Oxycodone HCl 10 mg 03/27/25 21:59 03/28/25 04:18 Oxycodone 5 Mg Tablet PO 10 mg Q4HR PRN Administration Severe Pain (Level 7-10) Phenazopyridine HCl 100 mg 03/27/25 22:00 03/28/25 05:50 Phenazopyridine 100 Mg Tablet PO 100 mg TID TASHA Administration Sodium Chloride 10 ml 03/27/25 17:56 Sodium Chloride Flush 0.9% 10 Ml Syringe IVP PRN PRN NEEDED PER PROVIDER ORDERS Sodium Chloride 10 ml 03/27/25 17:56 03/28/25 00:30 Sodium Chloride Flush 0.9% 10 Ml Syringe IVP Not Given 0100,0900,1700 [facility] Objective Vital Signs/Intake & Output Reviewed Vital Signs: Yes Vital Signs: Vital Signs x48h Temp Pulse Resp BP Pulse Ox 03/28/25 04:15 36.9 C 92 26 H 178/88 H 96 03/27/25 23:40 36.6 C 81 20 151/82 H 96 Intake & Output: Intake & Output 03/25/25 03/26/25 03/27/25 03/28/25 23:59 23:59 23:59 23:59 Intake Total 1580 / 1580 Output Total 350 / 350 375 / 375 Balance -350 / -350 1205 / 1205 Weight (kg) 127 kg Objective Comments/Other: Gen: Well nourished and well developed. No acute distress. Heent: Normocephalic/atraumatic, normal appearance of external ears and nose. Cardiac: Regular rate and rhythm. No murmurs appreciated. No visible JVP elevation. Equal radial pulses 2+. Pulm: Normal respirations without increased effort. Clear to auscultation throughout without wheezes, rales or rhonchi. Abdomen: Soft, rounded, nontender. No rebound tenderness or guarding. Back: Mild tenderness to palpation over R mid back. No CVA tenderness. Extremities: Moves all 4 extremities equally. Normal tone. No pitting edema. Neuro: Face symmetric, CN II through XII intact grossly. No focal neurologic deficits. Psych: Mood euthymic with congruent affect. Good fund of knowledge. Judgment intact. Lab Results 03/28/25 06:05 03/28/25 06:05 Other Labs: Lab Results x24hrs 03/28/25 03/27/25 03/27/25 Range/Units 06:05 16:23 16:10 WBC 10.9 H (4.8-10.8) x10^3/uL RBC 3.99 L (4.70-6.10) 10^6/uL Hgb 11.2 L (14.0-18.0) g/dL Hct 36.2 L (42.0-52.0) % MCV 90.7 (80.0-94.0) fL MCH 28.1 (27.0-31.0) pg MCHC 30.9 L (32.0-36.0) g/dL RDW 12.4 (12.0-15.0) % Plt Count 285 (130-450) 10^3/uL MPV 9.1 (7.4-11.4) fL Neut # (Auto) 8.3 H (1.5-6.6) 10^3/uL Lymph # (Auto) 1.4 L (1.5-3.5) 10^3/uL Gilliam # (Auto) 1.1 H (0.0-1.0) 10^3/uL Eos # (Auto) 0.1 (0.0-0.7) 10^3/uL Baso # (Auto) 0.0 (0.0-0.1) 10^3/uL Absolute Nucleated RBC 0.00 x10^3/uL Nucleated RBC % 0.0 /100WBC Sodium 130 L (135-145) mmol/L Potassium 4.3 (3.5-4.5) mmol/L Chloride 99 L (101-111) mmol/L Carbon Dioxide 28 (21-32) mmol/L Anion Gap 3.0 L (6-13) BUN 30 H (6-20) mg/dL Creatinine 1.8 H (0.6-1.3) mg/dL Estimated GFR (MDRD) 39 L (>89) Glucose 120 H (74-104) mg/dL Lactic Acid 0.6 (0.5-2.2) mmol/L Calcium 8.8 (8.5-10.3) mg/dL Total Bilirubin (0.2-1.0) mg/dL AST (10-42) IU/L ALT (10-60) IU/L Alkaline Phosphatase (42-121) IU/L Total Protein (6.4-8.9) g/dL Albumin (3.2-5.5) g/dL Globulin (2.1-4.2) g/dL Albumin/Globulin Ratio (1.0-2.2) Lipase (11-82) U/L Urine Color BRANDYN Urine Clarity CLOUDY (CLEAR) Urine pH 6.0 (5.0-7.5) PH Ur Specific [place] 1.020 (1.002-1.030) Urine Protein 100 H (NEGATIVE) mg/dL Urine Glucose (UA) NEGATIVE (NEGATIVE) mg/dL Urine Ketones 5 (NEGATIVE) mg/dL Urine Occult Blood LARGE (NEGATIVE) Urine Nitrite NEGATIVE (NEGATIVE) Urine Bilirubin SMALL H (NEGATIVE) Urine Urobilinogen 0.2 (NORMAL) (NORMAL) E.U./dL Ur Leukocyte Esterase SMALL H (NEGATIVE) Urine RBC TNTC H (0-5) /HPF Urine WBC >25 H (0-3) /HPF Urine WBC Clumps PRESENT Ur Squamous Epith Cells RARE Squamous (<= Few) Amorphous Sediment Few /LPF Urine Bacteria Many H (None Seen) /HPF Urine Mucus Moderate Strands Urine Yeast Ur Microscopic Review Urine Culture Comments INDICATED 03/27/25 03/27/25 Range/Units 14:52 14:23 WBC 15.4 H (4.8-10.8) x10^3/uL RBC 4.73 (4.70-6.10) 10^6/uL Hgb 13.3 L (14.0-18.0) g/dL Hct 42.0 (42.0-52.0) % MCV 88.8 (80.0-94.0) fL MCH 28.1 (27.0-31.0) pg MCHC 31.7 L (32.0-36.0) g/dL RDW 12.1 (12.0-15.0) % Plt Count 417 (130-450) 10^3/uL MPV 9.0 (7.4-11.4) fL Neut # (Auto) 12.5 H (1.5-6.6) 10^3/uL Lymph # (Auto) 1.3 L (1.5-3.5) 10^3/uL Gilliam # (Auto) 1.3 H (0.0-1.0) 10^3/uL Eos # (Auto) 0.0 (0.0-0.7) 10^3/uL Baso # (Auto) 0.1 (0.0-0.1) 10^3/uL Absolute Nucleated RBC 0.00 x10^3/uL Nucleated RBC % 0.0 /100WBC Sodium 132 L (135-145) mmol/L Potassium 5.2 H (3.5-4.5) mmol/L Chloride 96 L (101-111) mmol/L Carbon Dioxide 32 (21-32) mmol/L Anion Gap 4.0 L (6-13) BUN 29 H (6-20) mg/dL Creatinine 2.2 H (0.6-1.3) mg/dL Estimated GFR (MDRD) 31 L (>89) Glucose 116 H (74-104) mg/dL Lactic Acid (0.5-2.2) mmol/L Calcium 10.0 (8.5-10.3) mg/dL Total Bilirubin 1.0 (0.2-1.0) mg/dL AST 33 (10-42) IU/L ALT 22 (10-60) IU/L Alkaline Phosphatase 502 H (42-121) IU/L Total Protein 8.2 (6.4-8.9) g/dL Albumin 4.1 (3.2-5.5) g/dL Globulin 4.1 (2.1-4.2) g/dL Albumin/Globulin Ratio 1.0 (1.0-2.2) Lipase 18 (11-82) U/L Urine Color RED/BLOODY Urine Clarity BLOODY (CLEAR) Urine pH 6.0 (5.0-7.5) PH Ur Specific [place] 1.020 (1.002-1.030) Urine Protein 100 H (NEGATIVE) mg/dL Urine Glucose (UA) NEGATIVE (NEGATIVE) mg/dL Urine Ketones TRACE (NEGATIVE) mg/dL Urine Occult Blood LARGE (NEGATIVE) Urine Nitrite NEGATIVE (NEGATIVE) Urine Bilirubin NEGATIVE (NEGATIVE) Urine Urobilinogen 0.2 (NORMAL) (NORMAL) E.U./dL Ur Leukocyte Esterase SMALL H (NEGATIVE) Urine RBC TNTC H (0-5) /HPF Urine WBC 11-25 H (0-3) /HPF Urine WBC Clumps PRESENT Ur Squamous Epith Cells RARE Squamous (<= Few) Amorphous Sediment /LPF Urine Bacteria Moderate H (None Seen) /HPF Urine Mucus Urine Yeast PRESENT Ur Microscopic Review INDICATED Urine Culture Comments INDICATED Diagnostic Imaging Diagnostic Imaging Results: positive Final report reviewed Diagnostic Imaging Comments: 03-23-2025 CT Abdomen Pelvis w/o contrast With bladder wall thickening with prostatomegaly. Subtle perivascular stranding. Mild bilateral hydroureteronephrosis is noted. Without obstructing stone and otherwise normal kidney parenchyma. ABX Reporting Has patient been on IV antibiotics over the past 48 hours?: Yes Sepsis Event Note (H) Evaluation Current Stage of Sepsis: Sepsis Possible source of Sepsis: positive Genitourinary Sepsis Criteria Sepsis Criteria: WBC count greater than 12,000 or less than 4000 Assessment/Plan Problem List (1) Sepsis: (2) Urinary tract infection: Impression: Appears c/w with acute complicated UTI d/t urinary tract obstruction and enlarged prostate. Imaging is reassuring without renal parenchymal defect and mild bilateral hydronephrosis. Patient also appears to be clinically improving without fever or chills. No CVA tenderness. Patient initially presented with tachypnea and leukocytosis. Started on ceftriaxone. Now awaiting urine and blood cultures. Previous urines positive for pansensitive E.coli, Strep viridans. Known hx of urinary retention due to outlet obstruction, required catheterization early this month. Most recently seen with Dr. Marin in Urology 03-18, and prescribed extended 7 day course of Bactrim d/t persisting symptoms of fevers and chills. - Continue ceftriaxone, will narrow as able - Follow urine and blood cultures - Scheduled 1g Tylenol TID and 5mg oxycodone q4H prn - Ok to continue Flexeril prn - Avoid NSAIDs given RICHARD - D/c Azo since pain primarily in his back (3) Bladder outlet obstruction: Impression: Enlarged prostate. Symptoms appear consistent with symptomatic BPH, appears to have started in the last year. Seeing Urology to r/o possible malignancy. PSA was 0.2 in May, on recent labs. MRI scheduled for next week. - Continue tamsulosin - Monitor UOs, bladder scan prn. If PVR >300, will attempt catheterization - May need a coude tipped catheter (4) RICHARD (acute kidney injury): Impression: Improving intervally. Likely d/t infection and dehydration. 2.2 -> 1.8 with fluids. - Continue gentle fluids - Avoid NSAIDs for now (5) Hyponatremia: Impression: Mild 132 -> 130. Without symptoms. Potentially due to infection vs SIADH. - Will monitor - Receiving gentle fluids - Repeat BMP in am. (6) Hypertension: Impression: Has been hypertensive here. Tachypneic. Suspect pain contributing. - Continue Amlodipine 5mg - Await med rec to resume his home meds Qualifiers: Hypertension type: unspecified Qualified Code(s): I10 - Essential (primary) hypertension (7) Pulmonary nodule 1 cm or greater in diameter: Impression: 03-23-2025 CT KUB - Right lower lobe pulmonary nodules measuring 9 mm and 15 mm respectively. Recommend short interval follow-up CT in 3 months versus PET scan versus possible tissue sampling. No prior imaging for comparison. Never smoker. I spent a total of 59 minutes in the care of this patient today. This time was spent reviewing labs, vital signs, imaging, interviewing and examining the patient, and discussing plan of care with them and their other care providers. Patient is at risk of severe decompensation including loss of bodily function including kidney function, loss of normal bladder function, mortality if he becomes septic. We are managing parenteral antibiotics.
[2025-03-28] MEDS: INSULIN LISPRO 300 UNIT/3 ML PEN SUBQ SCH (08:14)
[2025-03-28] MEDS: ENOXAPARIN 40 MG/0.4 ML SYRINGE SUBQ SCH (08:47)
[2025-03-28] MEDS: ACETAMINOPHEN 500 MG TABLET PO SCH (08:56)
[2025-03-28] MEDS: MORPHINE 2 MG/ML CARPUJECT IVP ONE (09:30)
[2025-03-28] MEDS: oxyCODONE 5 MG TABLET PO SCH (09:31)
[2025-03-28] MEDS: TAMSULOSIN 0.4 MG CAPSULE PO SCH (09:32)
[2025-03-28] MEDS: WATER FOR INJECTION,STERILE 20 ML IV ONE (10:31)
[2025-03-29] MEDS: CYCLOBENZAPRINE 10 MG TABLET PO PRN (00:26)
[2025-03-29] MEDS ORDERED: HYDROmorphone 0.5 MG/0.5 ML SYRINGE ONE ×2 (00:47→02:26)
[2025-03-29] MEDS: HYDROmorphone 0.5 MG/0.5 ML SYRINGE IVP ONE ×5 (00:51→05:54)
[2025-03-29] MEDS ORDERED: HYDROmorphone 0.5 MG/0.5 ML SYRINGE IVP ONE (01:00)
[2025-03-29] MEDS: HYDROmorphone 0.5 MG/0.5 ML SYRINGE IVP SCH (02:27)
[2025-03-29 06:23] LABS: HCT - HEMATOCRIT 34.5 % (42.0-52.0); HGB - HEMOGLOBIN 11.1 g/dL (14.0-18.0); MEAN PLATELET VOLUME 9.5 fL (7.4-11.4); NRBC ABSOLUTE COUNT (AUTO) 0.00 x10^3/uL; NUCLEATED RED BLOOD CELLS AUTO 0.0 /100WBC; PLT - PLATELET COUNT 264 10^3/uL (130-450); RED CELL DISTRIBUTION WIDTH 12.1 % (12.0-15.0)
[2025-03-29 06:44] LABS: BUN - BLOOD UREA NITROGEN 18.0 mg/dL (6-20); CARBON DIOXIDE - CO2 26.0 mmol/L (21-32); CREATININE 1.4 mg/dL (0.6-1.3); GFR - MDRD 52.0 (>89)
[2025-03-29] MEDS ORDERED: HYDROmorphone 0.5 MG/0.5 ML SYRINGE IVP SCH (07:00)
[2025-03-29] MEDS: HYDROmorphone 0.5 MG/0.5 ML SYRINGE IVP PRN (07:29)
[2025-03-29] MEDS: KETOROLAC 15 MG/ML VIAL IVP STA (07:57)
--- NOTE | 2025-03-29 08:35 | CT Report ---
PROCEDURE: CT Abdomen/Pelvis WO INDICATIONS: Bilateral flank pain TECHNIQUE: A CT scan of the abdomen and pelvis was performed without the use of intravenous contrast. Images were recorded and evaluated at appropriate window settings. Reformats: coronal and sagittal. For radiation dose reduction, the following was used: automated exposure control, adjustment of mA and/or kV according to patient size. COMPARISON: None. FINDINGS: Image quality: Diagnostic. Lower chest: New mild bilateral pleural effusions and associated compressive atelectatic changes in the lower lobes. New mild bilateral lower lobe posterior peribronchial thickening and patchy opacities left greater than right, cannot exclude superimposed bronchitis or other process. Previously noted lung nodules are partially obscured by atelectasis and pleural effusion there is a right lower lobe basal lung nodule 8 mm (series 8 image 51. Follow-up is needed to exclude metastatic lesions. Increased moderate bilateral hydroureter nephrosis, hydroureter without ureteral or bladder calculus however pattern of obstruction is likely related to markedly enlarged abnormal lobulated prostate gland with associated wall thickening of the inferior base of the urinary bladder and posteriorly. Findings are more than expected for common prostatic hypertrophy and prostatic neoplasm should be considered. Follow-up is needed. Urology consult suggested increased moderate wall thickening of the urinary bladder with perivesicular edema suggest possible cystitis. Mild nonspecific pelvic free fluid likely reactive. No loculated fluid collection to suggest abscess. Bilateral inguinal hernias containing fat only unchanged measuring up to 4.5 cm transverse. Subtle increased sclerotic density of T10, L2, L3 and S1 vertebral bodies which given the other findings raises the suspicion for metastases, sclerotic prostate metastases could give this appearance. Otherwise infiltrative process, lymphoma or other cause could be considered. Follow-up is needed. Nuclear medicine bone scan or MRI may be useful for further evaluation. Moderate amount of stool throughout the colon in a pattern of constipation. Cholelithiasis without CT evidence of cholecystitis unchanged. Nonspecific wall thickening of the stomach commonly artifact from partial nondistention mild gastritis not excluded. Otherwise the unenhanced pancreas, adrenal glands, spleen, small bowel, aorta, IVC within normal limits Liver: No contour-deforming mass. Biliary tree: No intrahepatic or extrahepatic dilation, accounting for age. IMPRESSION: New bilateral pleural effusions and lower lobe peribronchial thickening and patchy opacities as discussed above. Increased moderate bilateral hydronephrosis and hydroureter likely related to markedly enlarged lobulated prostate gland as discussed above. Follow-up is needed. Increased wall thickening of the urinary bladder as discussed above. Increased sclerotic densities of the vertebral bodies suspicious for metastases as discussed above. Follow-up is needed. Right lower lobe pulmonary nodules as discussed above Other chronic findings as above. Reviewed by: Harsha Rodriguez MD on 03/29/2025 8:32 AM PST Approved by: Harsha Rodriguez MD on 03/29/2025 8:32 AM PST Station ID: [id number]
--- NOTE | 2025-03-29 09:34 | PROVIDER PROGRESS NOTE ---
<Statement entered by Augustin Anderson, DO - 03/29/25 14:36> I was present with the medical student on the hospitalist service. I personally verified the history of present illness and performed the physical examination and medical decision making. I have verified the medical students documentation for this encounter and agree with the plan of care below. In addition 59-year-old gentleman with a history of recent recurrent UTIs and bladder outlet obstruction who presents with malaise and bilateral flank pain R>L. His WBC, vital signs, and kidney function have been improving. Unfortunately his back pain has seemingly only gotten worse. He is now on scheduled oral Dilaudid every 3 hours. Will attempt to wean back on this over the coming day, but his pain has been difficult to manage. Repeated imaging today given his profound pain. No acute findings. Intervally worsened hydronephrosis bilaterally. With his nodular prostate, sclerotic spinal lesions, lung nodules, I do have a worsening concern for metastatic disease. Recall his PSA was 18 and has been increasing precipitously. Normally this is more consistent with an infectious process, but his symptoms are not necessarily responding to antibiotic therapy. - Continue aggressive pain management as below - Await MRI on , patient can discharge prior to this if he stabilizes - Follow-up CBC and continue monitoring vitals for recurrent infection - Continue antibiotics, consider extended course - If pain worsening, will start on Decadron to empirically treat for possible bony mets. - Consider renal ultrasound if further imaging needed. - Discussed with his family today, they are obviously very concerned about his health. They are requesting extensive coordination of his care moving forward between his MRI and urology follow-up. I will see what I can do on Sunday. Subjective Prog Note Date Prog Note Date: 03/29/25 Prog Note Time: 09:34 Subjective Pt reports feeling: No change Subjective: Patient still endorsing mid to low back pain without radiation, R>L. Sitting up makes it worse. Without new numbness or weakness. Required additional doses of pain meds last night. Otherwise no fever, chills, nausea or vomit. No abdominal pain. Still passing urine adequately on his own without obstruction. No hematuria or dysuria. Current Medications Current Medications Current Medications: Current Medications Generic Name Dose Route Start Last Admin Trade Name Freq PRN Reason Stop Dose Admin Amlodipine Besylate 5 mg 03/28/25 09:00 03/29/25 08:55 Amlodipine 5 Mg Tablet PO 5 mg DAILY TASHA Administration Ceftriaxone Sodium 2 gm 03/28/25 10:30 03/29/25 08:57 Ceftriaxone 2 Gm Vial IVP 04/01/25 09:01 2 gm DAILY TASHA Administration Cyclobenzaprine HCl 10 mg 03/29/25 00:12 03/29/25 00:26 Cyclobenzaprine 10 Mg Tablet PO 10 mg TID PRN Administration Spasms Enoxaparin Sodium 40 mg 03/28/25 09:00 03/29/25 08:55 Enoxaparin 40 Mg/0.4 Ml Syringe SUBQ 40 mg DAILY TASHA Administration Hydromorphone HCl 0.5 mg 03/29/25 07:27 03/29/25 07:29 Hydromorphone 0.5 Mg/0.5 Ml Syringe IVP 0.5 mg Q2H PRN Administration Severe Pain (Level 7-10) Hydromorphone HCl 2 mg 03/29/25 09:20 Hydromorphone 2 Mg Tablet PO Q3H TASHA Hydromorphone HCl 2 mg 03/29/25 09:19 Hydromorphone 2 Mg Tablet PO Q6HR PRN Severe Pain (Level 7-10) Sodium Chloride 1,000 mls @ 100 mls/hr 03/27/25 20:00 03/29/25 01:33 PST Normal Saline 0.9% IV 100 mls/hr .Q10H TASHA Administration Insulin Human Lispro 3 - 11 unit 03/28/25 08:00 03/29/25 08:56 Insulin Lispro 300 Unit/3 Ml Pen SUBQ Not Given 0800,1200,1700,2100 [facility] Protocol Lidocaine 1 patch 03/28/25 14:00 03/29/25 08:55 Lidocaine Patch 4% TOP 1 patch DAILY TASHA Administration Ondansetron HCl 4 mg 03/27/25 17:56 Ondansetron 4 Mg/2 Ml Vial IVP Q6HR PRN Nausea / Vomiting Polyethylene Glycol 17 gm 03/29/25 09:30 Polyethylene Glycol 3350 17 Gm Packet PO DAILY PRN Bowel Protocol Senna 17.2 mg 03/29/25 10:00 Senna 8.6 Mg Tablet PO BID TASHA Sodium Chloride 10 ml 03/27/25 17:56 Sodium Chloride Flush 0.9% 10 Ml Syringe IVP PRN PRN NEEDED PER PROVIDER ORDERS Sodium Chloride 10 ml 03/27/25 17:56 03/29/25 08:55 Sodium Chloride Flush 0.9% 10 Ml Syringe IVP 10 ml 0100,0900,1700 TASHA Administration Tamsulosin HCl 0.4 mg 03/28/25 09:00 03/29/25 08:55 Tamsulosin 0.4 Mg Capsule PO 0.4 mg DAILY TASHA Administration Objective Vital Signs/Intake & Output Reviewed Vital Signs: Yes Vital Signs: Vital Signs x48h Temp Pulse Resp BP Pulse Ox 03/29/25 07:48 36.5 C 89 18 157/83 H 94 03/29/25 05:38 37.0 C 92 18 159/84 H 95 Intake & Output: Intake & Output 03/26/25 03/27/25 03/28/25 03/29/25 23:59 23:59 23:59 22:59 Intake Total 3070 / 3070 1267 / 1267 Output Total 350 / 350 2565 / 2565 1900 / 1900 Balance -350 / -350 505 / 505 -633 / -633 Weight (kg) 127 kg Objective Comments/Other: Gen: Lying flat on back. Well nourished and well developed. No acute distress. Heent: Normocephalic/atraumatic, normal appearance of external ears and nose. Cardiac: Regular rate and rhythm. No murmurs appreciated. No visible JVP elevation. Equal radial pulses 2+. Pulm: Normal respirations without increased effort. Clear to auscultation throughout without wheezes, rales or rhonchi. Abdomen: Soft, rounded, nontender. No rebound tenderness or guarding. Back: Non-focal tenderness to palpation over mid to low back. No spinal tenderness. No CVA tenderness. Extremities: Able to all 4 extremities equally. Normal tone. Negative straight leg raise test. Neuro: Face symmetric, CN II through XII intact grossly. No focal neurologic deficits. Psych: Mood euthymic with congruent affect. Good fund of knowledge. Judgment intact. Lab Results 03/29/25 05:37 03/29/25 05:37 Other Labs: Lab Results x24hrs 03/29/25 03/29/25 03/28/25 Range/Units 07:36 05:37 20:30 WBC 7.9 (4.8-10.8) x10^3/uL RBC 3.85 L (4.70-6.10) 10^6/uL Hgb 11.1 L (14.0-18.0) g/dL Hct 34.5 L (42.0-52.0) % MCV 89.6 (80.0-94.0) fL MCH 28.8 (27.0-31.0) pg MCHC 32.2 (32.0-36.0) g/dL RDW 12.1 (12.0-15.0) % Plt Count 264 (130-450) 10^3/uL MPV 9.5 (7.4-11.4) fL Neut # (Auto) 5.6 (1.5-6.6) 10^3/uL Lymph # (Auto) 1.2 L (1.5-3.5) 10^3/uL [place] # (Auto) 0.8 (0.0-1.0) 10^3/uL Eos # (Auto) 0.1 (0.0-0.7) 10^3/uL Baso # (Auto) 0.1 (0.0-0.1) 10^3/uL Absolute Nucleated RBC 0.00 x10^3/uL Nucleated RBC % 0.0 /100WBC Sodium 131 L (135-145) mmol/L Potassium 3.9 (3.5-4.5) mmol/L Chloride 98 L (101-111) mmol/L Carbon Dioxide 26 (21-32) mmol/L Anion Gap 7.0 (6-13) BUN 18 (6-20) mg/dL Creatinine 1.4 H (0.6-1.3) mg/dL Estimated GFR (MDRD) 52 L (>89) Glucose 113 H (74-104) mg/dL POC Whole Bld Glucose 116 (70-100) mg/dL Calcium 8.8 (8.5-10.3) mg/dL Urine Creatinine 79.4 mg/dL Urine Sodium 92.8 mmol/L 03/28/25 03/28/25 03/28/25 Range/Units 20:29 16:43 11:16 WBC (4.8-10.8) x10^3/uL RBC (4.70-6.10) 10^6/uL Hgb (14.0-18.0) g/dL Hct (42.0-52.0) % MCV (80.0-94.0) fL MCH (27.0-31.0) pg MCHC (32.0-36.0) g/dL RDW (12.0-15.0) % Plt Count (130-450) 10^3/uL MPV (7.4-11.4) fL Neut # (Auto) (1.5-6.6) 10^3/uL Lymph # (Auto) (1.5-3.5) 10^3/uL [place] # (Auto) (0.0-1.0) 10^3/uL Eos # (Auto) (0.0-0.7) 10^3/uL Baso # (Auto) (0.0-0.1) 10^3/uL Absolute Nucleated RBC x10^3/uL Nucleated RBC % /100WBC Sodium (135-145) mmol/L Potassium (3.5-4.5) mmol/L Chloride (101-111) mmol/L Carbon Dioxide (21-32) mmol/L Anion Gap (6-13) BUN (6-20) mg/dL Creatinine (0.6-1.3) mg/dL Estimated GFR (MDRD) (>89) Glucose (74-104) mg/dL POC Whole Bld Glucose 108 127 107 (70-100) mg/dL Calcium (8.5-10.3) mg/dL Urine Creatinine mg/dL Urine Sodium mmol/L Diagnostic Imaging Diagnostic Imaging Results: positive Final report reviewed Diagnostic Imaging Comments: 03-23-2025 CT Abdomen Pelvis w/o contrast With bladder wall thickening with prostatomegaly. Subtle perivascular stranding. Mild bilateral hydroureteronephrosis is noted. Without obstructing stone and otherwise normal kidney parenchyma. 03/29/2025 CT Abdomen Pelvis w/o contrast Increased moderate bilateral hydroureter nephrosis. Likely related to markedly enlarged abnormal lobulated prostate gland with associated wall thickening of the inferior base of the urinary bladder and posteriorly. Increased bladder wall thickening. Subtle increased sclerotic density of T10, L2, L3 and S1 vertebral bodies which given the other findings raises the suspicion for metastases, sclerotic prostate metastases could give this appearance. Sepsis Event Note (H) Evaluation Current Stage of Sepsis: Sepsis Possible source of Sepsis: positive Genitourinary Sepsis Criteria Sepsis Criteria: WBC count greater than 12,000 or less than 4000 Assessment/Plan Problem List (1) Sepsis: (2) Urinary tract infection: Impression: Started on ceftriaxone, reflex cultures are pending. Blood cultures NG1D Appears c/w with acute complicated UTI d/t urinary tract obstruction and enlarged prostate. Imaging is reassuring without renal parenchymal defect and mild bilateral hydronephrosis. Patient also appears to be clinically improving without fever or chills. No CVA tenderness. Patient initially presented with tachypnea and leukocytosis. Started on ceftriaxone. Now awaiting urine and blood cultures. Previous urines positive for pansensitive E.coli, Strep viridans. Known hx of urinary retention due to outlet obstruction, required catheterization early this month. Most recently seen with Dr. Marin in Urology 03-18, and prescribed extended 7 day course of Bactrim d/t persisting symptoms of fevers and chills. His current differential includes uncomplicated cystitis in a male, complicated cystitis, cystitis following catheterization which puts him at risk for abnormal organisms, prostatitis. His symptoms are less consistent with prostatitis, but the persistence of his infection and rise in his PSA do cause me to question this. - Continue ceftriaxone, will narrow as able - Consider empiric treatment with fluoroquinolone for prostatitis, may need extended course - Will need follow-up with urology - Follow urine and blood cultures (3) Intractable back pain: (4) Bladder outlet obstruction: Impression: Patient is otherwise improving with regard to his renal function, leukocytosis, vital signs, but his pain has been worsening. Patient was in pain crisis when I saw him this morning. He had been receiving IV pushes of Dilaudid throughout the night. Given the discordance between his symptoms and his labs, CT of his abdomen was ordered 03/29. Personally reviewed by me. He does have some interval worsening hydronephrosis. Some vertebral sclerotic densities. Pulmonary nodules. Enlarged lobulated prostate with now moderate bilateral hydronephrosis seen on repeat CT. Patient is producing appropriate urine output, but continuing to endorse weak stream and frequency. His intractable back pain, and sclerotic vertebral changes seen on CTAP are concerning for metastasis. Rising PSA and alk phosphatase. Has been seeing Urology to r/o malignancy and has MRI scheduled this week. His PVRs remain less than 300. Patient really does not want repeat catheterization. Total of 94 MME over the last 24 hours, accounting for cross tolerance giving 2 mg Dilaudid every 3 throughout the day today scheduled. Additionally gave further parenteral Dilaudid this morning with one-time dose of IV Toradol 15 mg - Continue on oral opiates, as needed parenteral Dilaudid 1 mg available for breakthrough - Would avoid further NSAIDs given RICHARD. - Consider steroids as his pain may be related to bony lesions - Continue tamsulosin 0.4 mg daily, patient seems to be tolerating well. - Monitor UOs, bladder scan prn. If PVR >300, will attempt catheterization, may need a coude tipped catheter - Patient has MRI scheduled for 04/02, I will call them on Sunday to help coordinate and see if they can expedite any further. o Patient has questions about needing to use enemas prior to his imaging - Will need follow-up with urology, I will call him and try and get him scheduled tomorrow (5) RICHARD (acute kidney injury): Impression: Improving intervally. 2.2 -> 1.4 Likely prerenal mostly d/t dehydration, infection. Also consider his obstruction. Will continue to follow, notably the patient did receive IV Toradol today given his pain crisis. This may adversely affect his renal function. - Will discontinue maintenance fluids this afternoon given his otherwise improvement. Will liberalize from IV pole - Monitor creatinine a.m. (6) Hyponatremia: Impression: Mild and stable. Without symptoms. Potentially due to infection vs SIADH. - Repeat BMP in am. (7) Hypertension: Impression: Has been hypertensive here. Tachypneic. Suspect pain contributing. - Continue Amlodipine 5mg - Await med rec to resume his home meds Qualifiers: Hypertension type: unspecified Qualified Code(s): I10 - Essential (primary) hypertension (8) Pulmonary nodule 1 cm or greater in diameter: Impression: 03-23-2025 CT KUB - Right lower lobe pulmonary nodules measuring 9 mm and 15 mm respectively. Recommend short interval follow-up CT in 3 months versus PET scan versus possible tissue sampling. No prior imaging for comparison. Never smoker. - Need follow-up lung imaging in May I spent a total of 51 minutes in the care of this patient today. This time was spent reviewing labs, vital signs, imaging, interviewing and examining the patient, and discussing plan of care with them and their other care providers. Patient is at risk of severe decompensation including loss of bodily function including kidney function, loss of normal bladder function, mortality In the event of septicemia. We are managing this with parenteral antibiotics. Receiving high doses of enteral narcotics requiring close monitoring. Receiving parenteral narcotics.
[2025-03-29] MEDS: SENNA 8.6 MG TABLET PO SCH (11:24)
--- NOTE | 2025-03-29 16:45 | PHARMACY PROGRESS NOTE ---
Best Possible Medication History Admit Date and Time: 03/29/25 1208 Home Medications Medication Instructions Recorded Confirmed Type amlodipine 5 mg tablet 5 mg PO DAILY 10/11/2103/29 History lisinopril 40 mg tablet (Zestril) 40 mg PO DAILY 10/1103/29/25 History metoprolol tartrate 100 mg tablet 100 mg PO BID 03/29/25 History (Lopressor) trazodone 50 mg tablet 100 mg PO HS 12/18/24 History finasteride 5 mg tablet 5 mg PO QDAY #90 tabs 03/29/25 Rx Held on 03/29/25. Instructions: PER UROLOGIST tamsulosin 0.4 mg capsule 0.4 mg PO HS #90 caps 03/29/25 Rx Held on 03/29/25. Instructions: PT STATES PER UROLOGIST D/T SEVERE BACK PAIN tizanidine 2 mg capsule 2 mg PO TID PRN pain 5 03/29/25 History meloxicam 15 mg tablet 15 mg PO DAILY #14 tabs 02/2603/29/25 Rx methylprednisolone 4 mg tablets in See Rx Instructions PO .COMPLEX 03/23/25 03/29/25 Rx a dose pack (Medrol (Charan)) #21 ea oxycodone-acetaminophen 5 mg-325 1 - 2 tab PO Q8H PRN pain #14 tabs 03/23/25 03/29/25 Rx mg tablet Processed by: Pharmacy Medications reviewed in ED?: Yes Medication History completed: Yes Patient Interview: Completed Secondary Source(s): Insurance records [facility] Statement: As the person ultimately responsible for medication therapy, providers are able to order a medication from an existing home medication list in [facility] via the "Reconcile Routine" prior to Confirmation of that medication by legal support manager. Such practice is discouraged except when the physician, in their clinical judgment, deems that a medical need exists for a medication without regard to previous use.
[2025-03-30 05:32] LABS: HCT - HEMATOCRIT 33.7 % (42.0-52.0); HGB - HEMOGLOBIN 11.0 g/dL (14.0-18.0); MEAN PLATELET VOLUME 9.0 fL (7.4-11.4); NRBC ABSOLUTE COUNT (AUTO) 0.00 x10^3/uL; NUCLEATED RED BLOOD CELLS AUTO 0.0 /100WBC; PLT - PLATELET COUNT 271 10^3/uL (130-450); RED CELL DISTRIBUTION WIDTH 12.0 % (12.0-15.0)
[2025-03-30 05:48] LABS: BUN - BLOOD UREA NITROGEN 16.0 mg/dL (6-20); CARBON DIOXIDE - CO2 28.0 mmol/L (21-32); CREATININE 1.3 mg/dL (0.6-1.3); GFR - MDRD 57.0 (>89)
--- NOTE | 2025-03-30 07:20 | PROVIDER PROGRESS NOTE ---
Subjective Prog Note Date Prog Note Date: 03/30/25 Prog Note Time: 07:19 Subjective Subjective: Dose of alprazolam overnight. No chart notes. His creatinine continues to normalize. Leukocytosis remains resolved. Suspect we may discharge him later today with extended course of cipro until he can follow-up with Dr. Marin next week after his MRI is read. Will make some calls out to MRI and Urology to help coordinate his care later today. Current Medications Current Medications Current Medications: Current Medications Generic Name Dose Route Start Last Admin Trade Name Freq PRN Reason Stop Dose Admin Amlodipine Besylate 5 mg 03/28/25 09:00 03/29/25 08:55 Amlodipine 5 Mg Tablet PO 5 mg DAILY TASHA Administration Ceftriaxone Sodium 2 gm 03/28/25 10:30 03/29/25 08:57 Ceftriaxone 2 Gm Vial IVP 04/01/25 09:01 2 gm DAILY TASHA Administration Cyclobenzaprine HCl 10 mg 03/29/25 00:12 03/30/25 01:02 Cyclobenzaprine 10 Mg Tablet PO 10 mg TID PRN Administration Spasms Enoxaparin Sodium 40 mg 03/28/25 09:00 03/29/25 08:55 Enoxaparin 40 Mg/0.4 Ml Syringe SUBQ 40 mg DAILY TASHA Administration Hydromorphone HCl 0.5 mg 03/29/25 07:27 03/30/25 01:01 Hydromorphone 0.5 Mg/0.5 Ml Syringe IVP 0.5 mg Q2H PRN Administration Severe Pain (Level 7-10) Hydromorphone HCl 2 mg 03/29/25 09:20 03/30/25 07:00 Hydromorphone 2 Mg Tablet PO 2 mg Q3H TASHA Administration Hydromorphone HCl 2 mg 03/29/25 09:19 Hydromorphone 2 Mg Tablet PO Q6HR PRN Severe Pain (Level 7-10) Sodium Chloride 1,000 mls @ 100 mls/hr 03/27/25 20:00 03/29/25 22:13 Normal Saline 0.9% IV 100 mls/hr .Q10H TASHA Administration Insulin Human Lispro 3 - 11 unit 03/28/25 08:00 03/29/25 22:13 Insulin Lispro 300 Unit/3 Ml Pen SUBQ Not Given 0800,1200,1700,2100 TASHA Protocol Lidocaine 1 patch 03/28/25 14:00 03/29/25 08:55 Lidocaine Patch 4% TOP 1 patch DAILY TASHA Administration Ondansetron HCl 4 mg 03/27/25 17:56 Ondansetron 4 Mg/2 Ml Vial IVP Q6HR PRN Nausea / Vomiting Polyethylene Glycol 17 gm 03/29/25 09:30 Polyethylene Glycol 3350 17 Gm Packet PO DAILY PRN Bowel Protocol Senna 17.2 mg 03/29/25 10:00 03/29/25 20:18 Senna 8.6 Mg Tablet PO 17.2 mg BID TASHA Administration Sodium Chloride 10 ml 03/27/25 17:56 Sodium Chloride Flush 0.9% 10 Ml Syringe IVP PRN PRN NEEDED PER PROVIDER ORDERS Sodium Chloride 10 ml 03/27/25 17:56 03/30/25 01:02 Sodium Chloride Flush 0.9% 10 Ml Syringe IVP 10 ml 0100,0900,1700 TASHA Administration Tamsulosin HCl 0.4 mg 03/28/25 09:00 03/29/25 08:55 Tamsulosin 0.4 Mg Capsule PO 0.4 mg DAILY TASHA Administration Objective Vital Signs/Intake & Output Vital Signs: Vital Signs x48h Temp Pulse Resp BP Pulse Ox 03/30/25 00:00 37.0 C 89 18 174/86 H 94 Intake & Output: Intake & Output 03/27/25 03/28/25 03/29/25 03/30/25 23:59 23:59 22:59 23:59 Intake Total 3070 / 3070 3955 / 3955 600 / 600 Output Total 350 / 350 2565 / 2565 3125 / 3125 2099 / 2099 Balance -350 / -350 505 / 505 830 / 830 -1500 / -1500 Weight (kg) 127 kg Lab Results 03/30/25 05:20 03/30/25 05:20 Other Labs: Lab Results x24hrs 03/30/25 03/29/25 03/29/25 Range/Units 05:20 20:47 16:47 WBC 7.1 (4.8-10.8) x10^3/uL RBC 3.82 L (4.70-6.10) 10^6/uL Hgb 11.0 L (14.0-18.0) g/dL Hct 33.7 L (42.0-52.0) % MCV 88.2 (80.0-94.0) fL MCH 28.8 (27.0-31.0) pg MCHC 32.6 (32.0-36.0) g/dL RDW 12.0 (12.0-15.0) % Plt Count 271 (130-450) 10^3/uL MPV 9.0 (7.4-11.4) fL Neut # (Auto) 4.8 (1.5-6.6) 10^3/uL Lymph # (Auto) 1.3 L (1.5-3.5) 10^3/uL [place] # (Auto) 0.7 (0.0-1.0) 10^3/uL Eos # (Auto) 0.2 (0.0-0.7) 10^3/uL Baso # (Auto) 0.0 (0.0-0.1) 10^3/uL Absolute Nucleated RBC 0.00 x10^3/uL Nucleated RBC % 0.0 /100WBC Sodium 134 L (135-145) mmol/L Potassium 4.0 (3.5-4.5) mmol/L Chloride 100 L (101-111) mmol/L Carbon Dioxide 28 (21-32) mmol/L Anion Gap 6.0 (6-13) BUN 16 (6-20) mg/dL Creatinine 1.3 (0.6-1.3) mg/dL Estimated GFR (MDRD) 57 L (>89) Glucose 115 H (74-104) mg/dL POC Whole Bld Glucose 108 121 (70-100) mg/dL Calcium 8.8 (8.5-10.3) mg/dL 03/29/25 03/29/25 Range/Units 11:34 07:36 WBC (4.8-10.8) x10^3/uL RBC (4.70-6.10) 10^6/uL Hgb (14.0-18.0) g/dL Hct (42.0-52.0) % MCV (80.0-94.0) fL MCH (27.0-31.0) pg MCHC (32.0-36.0) g/dL RDW (12.0-15.0) % Plt Count (130-450) 10^3/uL MPV (7.4-11.4) fL Neut # (Auto) (1.5-6.6) 10^3/uL Lymph # (Auto) (1.5-3.5) 10^3/uL [place] # (Auto) (0.0-1.0) 10^3/uL Eos # (Auto) (0.0-0.7) 10^3/uL Baso # (Auto) (0.0-0.1) 10^3/uL Absolute Nucleated RBC x10^3/uL Nucleated RBC % /100WBC Sodium (135-145) mmol/L Potassium (3.5-4.5) mmol/L Chloride (101-111) mmol/L Carbon Dioxide (21-32) mmol/L Anion Gap (6-13) BUN (6-20) mg/dL Creatinine (0.6-1.3) mg/dL Estimated GFR (MDRD) (>89) Glucose (74-104) mg/dL POC Whole Bld Glucose 99 116 (70-100) mg/dL Calcium (8.5-10.3) mg/dL Sepsis Event Note (H) Evaluation Current Stage of Sepsis: Sepsis Possible source of Sepsis: positive Genitourinary Sepsis Criteria Sepsis Criteria: WBC count greater than 12,000 or less than 4000 Assessment/Plan Problem List (1) Sepsis: (2) Urinary tract infection: (3) Intractable back pain: (4) Bladder outlet obstruction: (5) RICHARD (acute kidney injury): (6) Hyponatremia: (7) Hypertension: Qualifiers: Hypertension type: unspecified Qualified Code(s): I10 - Essential (primary) hypertension (8) Pulmonary nodule 1 cm or greater in diameter:
--- NOTE | 2025-03-30 08:47 | Discharge Summary ---
"Discharge Summary Admit Date: 03/27/25 Discharge Date: 03/30/25 Discharging Provider: Augustin Anderson Primary Care Provider: Rossy Cronin Code Status: Attempt Resuscitation Discharge Facility Name: Home DIAGNOSES Admission Diagnoses: Discharge Diagnoses with Status of Each Condition: ## Sepsis ## Urinary tract infection, complciated Improved. Leukocytosis resolved on CTX. Urine cx grew aerococcus urinae, this is typically susceptable to amoxicillin. Limited data on ceftriaxone. Will give an additional 7 days of amoxicillin to see if his pain further improves on definitive treatment. No growht from blood cultures. Appears c/w with acute complicated UTI d/t urinary tract obstruction and enlarged prostate. Imaging is reassuring without renal parenchymal defect and mild bilateral hydronephrosis. No systemic signs of infection. No stones or other intervenable obstruction. Patient initially presented with tachypnea and leukocytosis. Previous urines positive for pansensitive E.coli, Strep viridans. His symptoms are less consistent with prostatitis, but the persistence of his infection and rise in his PSA do cause me to question this. - Bladder outlet obstruction as below - Will need follow-up with urology, left message with Dr. Marin's office who will schedule with patient - Sent with course of amoxicillin ## Intractable back pain ## Bladder outlet obstruction Patient is otherwise improving with regard to his renal function, leukocytosis, vital signs, but his pain has been worsening. He was found in pain crisis on day prior to discharge. Started on scheduled narcotics which greatly improved his pain. Not requiring IV narcotics at time of discharge. Given the discordance between his symptoms and his labs, CT of his abdomen was ordered 03/29. Personally reviewed by me. He does have some interval worsening hydronephrosis. Some vertebral sclerotic densities. Pulmonary nodules. Enlarged lobulated prostate with now moderate bilateral hydronephrosis seen on repeat CT. Patient is producing appropriate urine output and PVR has remained low not prompting catheterization. His Cr is improving. The patient was adamant he did not want to have a catherter placed. His intractable back pain, and sclerotic vertebral changes seen on CTAP are concerning for metastasis. Rising PSA and alk phosphatase. Has been seeing Urology to r/o malignancy and has MRI scheduled this week. - Prescribing oral dilaudid 2mg q3h, consideration for consolidation but thought this would allow for more conservative use and patient agreed. - Sent with narcan rx. - Patient refused APAP - Would avoid further NSAIDs given RICHARD. - Consider steroids as his pain may be related to bony lesions - Continue tamsulosin 0.4 mg daily, he has this at home. - Patient has MRI scheduled for 04/02, patient aware of instruction, enema preceding. ## RICHARD (acute kidney injury) Improving intervally. 2.2 -> 1.3. Likely prerenal mostly d/t dehydration, infection. Also consider his obstruction, improved with fluids. - Will need BMP at urology f/u within a week - Patient will continue at least 2-3 L of fluid daily. ## Hypertension: Has been hypertensive here. Tachypneic. Suspect pain contributing. - Continue home antihypertensives at d/c ## Pulmonary nodule 1 cm or greater in diameter 03-23-2025 CT KUB - Right lower lobe pulmonary nodules measuring 9 mm and 15 mm respectively. Recommend short interval follow-up CT in 3 months versus PET scan versus possible tissue sampling. No prior imaging for comparison. Never smoker. - Need follow-up lung imaging in May History of Present Illness: 59 yo male w PMHx HTN, and SVT and more recently recurrent UTI presents to the ED with complaints of feeling dizzy and bilateral flank pain, right>left. Has been seen by urology. Recent PSA of 17.9, Dr. Marin notes that his PSA has been increasing from 0.2 in May 2019 25-6.9 in January 2025 and now 17.9. Earlier this month he had an episode of acute urinary retention and had a Fung placed. This was very traumatic for him and he would prefer not to have a Fung. He started tamsulosin and finasteride but was unable to tolerate these medications due to side effects. He was seen in urology office after having Fung catheter for a week, was passing urine normally with some urgency with a postvoid residual of 83 cc. MRI of the prostate is scheduled for March 31. He is also had a CT of the abdomen pelvis done 4 days ago which shows mild bilateral hydro ureter nephrosis without distal obstructing stone. This is thought to be sequela of chronic bladder outlet obstruction given the enlarged prostate gland and thickening of the urinary bladder with suggestion of mild urinary bladder wall trabeculation. There is subtle perivesicular stranding which could represent cystitis. Urine cultures on 03/04/2025 grew E. coli and on 03/18/2025 grew strep viridans he had a set of negative blood cultures from 03/18/2025. As stated above he has been feeling poorly at home. Subjective fevers, weak and dizzy.He had a course of ciprofloxacin earlier in the month and then was treated subsequently with a course of Bactrim. His urinalysis today is indicative of urinary tract infection. Culture is obviously pending at this time. Blood cultures were drawn post initiation of antibiotic therapy today. CODE STATUS: Full code. Surrogate decision maker should he need one is his , Flori Smith. CONSULTS | PROCEDURES Consultations: None Procedures: CTAP 03/29 HOSPITAL COURSE Hospital Course: Patient was admitted with concern for complicated UTI. He received IV hadration for RICHARD and CTX for infection. His cultures returned on day of discharge with aerococcus urinae. No sensitivities can be run by our lab on this sample. He has resolution of leukocytosis on ceftriaxone, and resolution of RICHARD. His PVR was monitored throughout the hospitalization and never prompted straight catheterization. Patient adamantly declined catheterization. He had intractable pain and was started on scheduled narcotics which was finally able to resolve his pain. He was started on tamsulosin without issue, he states this may have improved his urinary retention some. I worry about malignancy given worsening pain despite seemingly treating his infection and not having significant obstructive process. His scans show some bony sclerosis which is read with concern for malignancy by radiologist. He has MRI scheduled for 04/02. He will start on amoxicillin which predictably covers aeroccocus. He will follow-up with urology after his MRI. I have called urology on day of discharge to try and get the patient scheduled. They will reach out with sooner availability if they have any. Discharging patient on high dose of narcotics given unrelenting pain. This has allowed him some rest and resolve. He was also concerned about anxiety around his health condition. We discussed options and I feel that Vistaril is probably safest given his concurrent narcotics. He is getting Narcan rx as well. * Consider decadron vs placement of catheter if pain remains difficult to manage * Needs BMP in 1 week to monitor renal function * Complete MRI as planned * Urology f/u ALLERGIES Allergies Allergy/AdvReac Type Severity Reaction Status Date / Time ciprofloxacin AdvReac Mild kidney pain Verified 03/27/25 14:05 MEDICATIONS Ambulatory Orders Medication Instructions Recorded Confirmed amlodipine 5 mg tablet 5 mg PO DAILY 10/11/2103/29 lisinopril 40 mg tablet (Zestril) 40 mg PO DAILY 10/1103/29/25 metoprolol tartrate 100 mg tablet 100 mg PO BID 03/29/25 (Lopressor) trazodone 50 mg tablet 100 mg PO HS 12/18/24 finasteride 5 mg tablet 5 mg PO QDAY #90 tabs 03/29/25 Held on 03/30/25. Instructions: Resume on 04/13/25. You felt unwell when starting on both this and tamsulosin. You've tolerated tamsulosin well. Please don't start on finasteride until you follow-up with Dr. Marin. tamsulosin 0.4 mg capsule 0.4 mg PO HS #90 caps 03/29/25 tizanidine 2 mg capsule 2 mg PO TID PRN pain 5 03/29/25 meloxicam 15 mg tablet 15 mg PO DAILY #14 tabs 02/2603/29/25 Held on 03/30/25. Instructions: Resume on 04/13/25. Do not resume until told that it is safe to do so from your urologist. amoxicillin 500 mg capsule 500 mg PO Q8H 7 days #21 ca ps 03/30/25 hydromorphone 2 mg tablet 2 mg PO Q3H #112 tabs hydroxyzine pamoate 50 mg capsule 50 mg PO Q4H PRN Anx iety #60 caps 03/30/25 naloxone 4 mg/actuation nasal 1 spray intranasal Q2M # 2 ea 03/30/25 spray (Narcan) polyethylene glycol 3350 17 gram 17 g PO DAILY Bowel P rotocol #30 ea 03/30/25 oral powder packet sennosides 8.6 mg tablet (Senna 17.2 mg (2 x 8.6 mg) P O BID #120 03/30/25 Lax) tabs PHYSICAL EXAM AT DISCHARGE Vital Signs: Vital Signs x48h Temp Pulse Resp BP Pulse Ox 03/30/25 07:37 36.6 C 91 18 166/95 H 95 Physical Exam Other/Comments: Gen: Lying flat on back. Well nourished and well developed. No acute distress. Heent: Normocephalic/atraumatic, normal appearance of external ears and nose. Cardiac: Regular rate and rhythm. No murmurs appreciated. No visible JVP elevation. Equal radial pulses 2+. Pulm: Normal respirations without increased effort. Clear to auscultation throughout without wheezes, rales or rhonchi. Abdomen: Soft, rounded, nontender. No rebound tenderness or guarding. Back: Non-focal tenderness to palpation over mid to low back. No spinal tenderness. No CVA tenderness. Extremities: Able to all 4 extremities equally. Normal tone. Negative straight leg raise test. Neuro: Face symmetric, CN II through XII intact grossly. No focal neurologic deficits. Psych: Mood euthymic with congruent affect. Good fund of knowledge. Judgment intact. LABS 03/30/25 05:20 03/30/25 05:20 SEPSIS Current Stage of Sepsis: Sepsis Possible source of Sepsis: Genitourinary Sepsis Criteria: WBC count greater than 12,000 or less than 4000 FOLLOW UP Follow Up: Urology f/u and BMP in ~1 week. TIME SPENT Time Spent in Discharge (Minutes): 44 Discharge Plan Discharge Patient Disposition: 01 Home, Self Care Condition: Stable Medically Cleared Date:: 03/30/25 Prescriptions: New hydromorphone 2 mg Tablet 2 mg PO Q3H Qty: 112 0RF Rx Instructions: Use the lowest effective amount hydroxyzine pamoate 50 mg capsule 50 mg PO Q4H PRN (Reason: Anxiety) Qty: 60 0RF sennosides [Senna Lax] 8.6 mg Tablet 17.2 mg PO BID Qty: 120 0RF Rx Instructions: Use daily while on opioid therapy. Can reduce to 1 tablet twice daily if having at least 1 soft BM per day. polyethylene glycol 3350 17 gram Powder In Packet 17 g PO DAILY Qty: 30 0RF Rx Instructions: Use to keep stools loose while on opioids, can go to as needed treatment if having at least 1 bowel movement per day. amoxicillin 500 mg capsule 500 mg PO Q8H 7 Days Qty: 21 0RF naloxone [Narcan] 4 mg/actuation spray,non-aerosol 1 spray intranasal Q2M Qty: 2 0RF Rx Instructions: Use if unresponsive, or not breathing. Have someone call 911 at the same time. [place] 1 dose into ONE nostril; alternate nostrils w each dose until help arrives Continued metoprolol tartrate [Lopressor] 100 MG tablet 100 mg PO BID amlodipine 5 MG tablet 5 mg PO DAILY lisinopril [Zestril] 40 MG tablet 40 mg PO DAILY trazodone 50 mg tablet 100 mg PO HS Patient Comments: TAKE 1 TABLET BY MOUTH EVERY NIGHT 1 HOUR BEFORE BEDTIME NEEDED FOR SLEEP tizanidine 2 mg capsule 2 mg PO TID PRN (Reason: pain) tamsulosin 0.4 mg capsule 0.4 mg PO HS Qty: 90 3RF Held finasteride 5 mg tablet 5 mg PO QDAY Qty: 90 3RF Hold Instructions: Resume on 04/13/25. You felt unwell when starting on both this and tamsulosin. You've tolerated tamsulosin well. Please don't start on finasteride until you follow-up with Dr. Marin. meloxicam 15 mg tablet 15 mg PO DAILY Qty: 14 0RF Hold Instructions: Resume on 04/13/25. Do not resume until told that it is safe to do so from your urologist. Discontinued oxycodone-acetaminophen 5-325 mg tablet 1 - 2 tab PO Q8H PRN (Reason: pain) Qty: 14 0RF methylprednisolone [Medrol (Charan)] 4 mg tablets,dose pack See Rx Instructions .ROUTE .COMPLEX Qty: 21 0RF Rx Instructions: for 6 days Activity Restrictions: Activity as Tolerated Diet: Regular Health Concerns: You are admitted with urinary tract infection, with concern for spread your bloodstream. You had an elevated white blood cell count and decreased kidney function. Your kidney function is normalizing. You are receiving fluids here. Your white blood cell count has returned to normal. Your vital signs are stable otherwise. Your urine was growing a species of bacteria called Aerococcus. This is susceptible to antibiotics that you are started on on discharge. I would take 5 more days of amoxicillin to complete treatment for this bacterial infection. Your blood cultures have not grown anything to date, but I will continue to monitor them. Your pain has been pronounced while you are here. We have started you on narcotics on a scheduled basis. I am hopeful that these can continue to control your pain as you return home. As we continue to treat the infection, it is possible that your pain may further improve. It is reasonable to go down on your pain medications if you feel your pain is controlled. Like most medications, the lowest effective dose that is what you should be taking of your pain medications. I am also starting you on an anxiety medicine that is safe to take while you are on these pain medicines. I would prioritize taking it at time of sleep. Given the high dose of opioids you are on I am sending you with a prescription for Narcan, this is an important reversal agent of narcotics. Please share with your that if she is to find you unconscious and difficult to arouse, she can use the Narcan and it is safe to do so. If you are not in narcotic overdose there is no risk of using Narcan. Please ask the pharmacist if you need further information on how to use this medicine. I discussed with MRI. They are expecting you for your MRI on . Please do not eat any solid foods for the 4 hours prior to your study. You can continue drinking water. Use an [id number] Fleet enema 1 to 2 hours before your scheduled imaging. This is to clean out any stool in the distal colon so that they can get a better picture. I asked them specifically whether you needed to use more than 1 enema, and they told me that 1 should be sufficient. Most importantly, please follow-up with urology next week. Please call Dr. Marin's office to make sure that they have you on schedule to follow-up on your imaging and continue your ongoing care. I am hopeful that with appropriate treatment, you continue to feel better. To summarize your next apps: * Continue to drink at least 2-1/2 L of fluids each day. * Please get your imaging on , use 1 Fleet enema 1 to 2 hours before your MRI * Follow-up with Dr. Marin's office * Continue your course of oral antibiotics, for 5 days * Continue taking the narcotics for pain control, use the lowest effective dose * You can continue taking Vistaril for anxiety, this is safe to do so with your narcotic Please return to the hospital if: * You have fevers while on these antibiotics * Your pain is uncontrolled * You are noticing a reduction in your urine output despite continuing to drink plenty of fluids * If you are having uncontrolled diarrhea, which can be a side effect of the antibiotics. Print Language: Albanian Patient Instructions: Hydromorphone, Understanding Prostate MRI, Naloxone for Overdose Steps Follow-up Care: Jono Marin MD [Primary Care Provider, Urology] Vitals documented within 30 minutes of discharge?: Yes (Yes)"
[2025-03-30 11:08] VITALS: BP 187/94; TEMP 98.1; O2SAT 96
== END 2025-03-30 11:00 | disposition home or self-care (01) | DRG 872 ==
LOC: ED 13:30 → MS2 13:30 → SUATTDRO 16:49 → MS2 17:52
PROVIDERS: ADMIT Physician Assistant Medical; ATTEND Student in an Organized Health Care Education/Training Program
DX: Z79.899 Other long term (current) drug therapy; R74.8 Abnormal levels of other serum enzymes; N32.89 Other specified disorders of bladder; N39.0 Urinary tract infection, site not specified; Z87.440 Personal history of urinary (tract) infections; N40.1 Benign prostatic hyperplasia with lower urinary tract symptoms; E86.0 Dehydration; M89.9 Disorder of bone, unspecified; M54.9 Dorsalgia, unspecified; R97.20 Elevated prostate specific antigen [PSA]; R93.7 Abnormal findings on diagnostic imaging of other parts of musculoskeletal system; N13.8 Other obstructive and reflux uropathy; R65.20 Severe sepsis without septic shock; N32.0 Bladder-neck obstruction; I47.10 Supraventricular tachycardia, unspecified; I10 Essential (primary) hypertension; R91.8 Other nonspecific abnormal finding of lung field; A41.89 Other specified sepsis; N17.9 Acute kidney failure, unspecified; N13.30 Unspecified hydronephrosis; E87.1 Hypo-osmolality and hyponatremia